=== PATIENT | male | born 2000 | race Caucasian/White ===

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

== ENCOUNTER 2023-01-08 13:59 | Emergency (ER) | payer OTHER, SELFPAY ==
[2023-01-08] VITALS (7 sets, daily range): BP systolic 109–138; BP diastolic 51–79; PULSE 80–104; RESP 13–21; TEMP 36.3; O2SAT 97–100; BMI 32.6
--- NOTE | 2023-01-08 14:12 | RAD_ITS ---
HISTORY: pain. TECHNIQUE: XR Ankle Min 3 Views. COMPARISON: None. FINDINGS: BONES : Fracture of the medial malleolus with lateral displacement. Oblique or spiral fracture of the distal fibula with mild posterior displacement. Nondisplaced fracture of the posterior malleolus. JOINTS: Widening of the ankle mortise medially. Joint effusion. SOFT TISSUES: Severe soft tissue swelling. RAD/Ankle min 3 Views IMPRESSION: Trimalleolar fracture-subluxation of the left ankle. Electronically Signed: Wilma Renteria MD at 15:06 EDT ,
[2023-01-08] MEDS: Ibuprofen 600 MG Tablet PO (14:20)
--- NOTE | 2023-01-08 14:21 | EX.ED.DYSGE1 ---
HPI <BE Chavez - Last Filed: 01/08/23 17:56> History of Present Illness Chief Complaint: Lower Extremity Injury Narrative Narrative: 22-year-old male tripped on the stairs yesterday and rolled his left ankle. He is having a lot of pain and swelling and is hobbling around. No weakness numbness or tingling. PFSH <BE Chavez - Last Filed: 01/08/23 17:56> [facility] Medical History (Updated 01/08/23 @ 16:08 by BE Chavez) Anxiety Depression Home Medications magnesium 200 mg tablet 200 mg PO DAILY 09/30/17 [History Last Taken Unknown] potassium gluconate 500 mg (83 mg) tablet 595 mg PO DAILY 09/30/17 [History Last Taken Unknown] Allergy/AdvReac Type Severity Reaction Status Date / Time amoxicillin Allergy Rash Verified 01/08/23 14:01 Social History (System 04/20/21 @ 14:56 by Leo Martinez) Smoking Status: Never smoker ROS <BE Chavez - Last Filed: 01/08/23 17:56> ROS ED ROS Narrative Constitutional: Negative for fever, chills, malaise. Neuro: Negative for motor/sensory dysfunction. Skin: Positive for abrasions. Musc: Positive for left ankle pain, swelling, trauma. EXAM <BE Chavez - Last Filed: 01/08/23 17:56> Physical Exam Narrative Exam Narrative: CONST: Patient sitting in no acute distress. EYES: Normal inspection. NECK: Normal inspection. RESP: No respiratory distress, CTAB. CVS: Regular rate and rhythm, no murmur, no gallop. SKIN: 2 small abrasions left medial ankle. EXTREMITIES: Significant left ankle soft tissue swelling with mild deformity, tenderness over the medial and lateral malleolus. No foot tenderness. Achilles intact, normal sensation, 2+ DP pulse. NEURO: Oriented x4. PSYCH: Normal affect. Const Vital Signs: 01/08/23 13:59 01/08/23 16:15 01/08/23 16:17 Temperature 97.4 F L Temperature Source Temporal Pulse Rate 104 H 93 Pulse Rate [1 (Initial Baseline)] 97 Pulse Rate [2] 82 Pulse Rate [3] 80 Pulse Rate [4] 84 Pulse Rate [5] 80 Pulse Rate [6] 82 Pulse Rate [7] 90 Pulse Rate [8] 86 Respiratory Rate 18 21 H Respiratory Rate [1 (Initial Baseline)] 13 Respiratory Rate [2] 16 Respiratory Rate [3] 18 Respiratory Rate [4] 16 Respiratory Rate [5] 16 Respiratory Rate [6] 16 Respiratory Rate [7] 16 Respiratory Rate [8] 16 Blood Pressure 132/65 H 138/79 H Blood Pressure [1 (Initial Baseline)] 128/69 H Blood Pressure [2] 130/73 H Blood Pressure [3] 109/61 Blood Pressure [6] 120/65 Blood Pressure [7] 109/51 L Blood Pressure [8] 119/68 Blood Pressure Mean 87 Pulse Ox 98 100 Oxygen Delivery Method Room Air Nasal Cannula Oxygen Delivery Method [1 (Initial Baseline)] Nasal Cannula Oxygen Delivery Method [2] Nasal Cannula Oxygen Delivery Method [3] Nasal Cannula Oxygen Delivery Method [4] Nasal Cannula Oxygen Delivery Method [5] Nasal Cannula Oxygen Delivery Method [6] Nasal Cannula Oxygen Delivery Method [7] Nasal Cannula Oxygen Delivery Method [8] Room Air Oxygen Flow Rate (L/min) 2 Oxygen Flow Rate (L/min) [1 (Initial Baseline)] 6 Oxygen Flow Rate (L/min) [2] 6 Oxygen Flow Rate (L/min) [3] 6 Oxygen Flow Rate (L/min) [4] 6 Oxygen Flow Rate (L/min) [5] 6 Oxygen Flow Rate (L/min) [6] 6 Oxygen Flow Rate (L/min) [7] 2 01/08/23 16:53 01/08/23 16:57 01/08/23 17:02 Temperature Temperature Source Pulse Rate Pulse Rate [1 (Initial Baseline)] Pulse Rate [2] Pulse Rate [3] Pulse Rate [4] Pulse Rate [5] Pulse Rate [6] Pulse Rate [7] Pulse Rate [8] Respiratory Rate Respiratory Rate [1 (Initial Baseline)] Respiratory Rate [2] Respiratory Rate [3] Respiratory Rate [4] Respiratory Rate [5] Respiratory Rate [6] Respiratory Rate [7] Respiratory Rate [8] Blood Pressure Blood Pressure [1 (Initial Baseline)] Blood Pressure [2] Blood Pressure [3] Blood Pressure [6] Blood Pressure [7] Blood Pressure [8] Blood Pressure Mean Pulse Ox Oxygen Delivery Method Room Air Room Air Room Air Oxygen Delivery Method [1 (Initial Baseline)] Oxygen Delivery Method [2] Oxygen Delivery Method [3] Oxygen Delivery Method [4] Oxygen Delivery Method [5] Oxygen Delivery Method [6] Oxygen Delivery Method [7] Oxygen Delivery Method [8] Oxygen Flow Rate (L/min) Oxygen Flow Rate (L/min) [1 (Initial Baseline)] Oxygen Flow Rate (L/min) [2] Oxygen Flow Rate (L/min) [3] Oxygen Flow Rate (L/min) [4] Oxygen Flow Rate (L/min) [5] Oxygen Flow Rate (L/min) [6] Oxygen Flow Rate (L/min) [7] 01/08/23 17:30 Temperature Temperature Source Pulse Rate Pulse Rate [1 (Initial Baseline)] Pulse Rate [2] Pulse Rate [3] Pulse Rate [4] Pulse Rate [5] Pulse Rate [6] Pulse Rate [7] Pulse Rate [8] Respiratory Rate 16 Respiratory Rate [1 (Initial Baseline)] Respiratory Rate [2] Respiratory Rate [3] Respiratory Rate [4] Respiratory Rate [5] Respiratory Rate [6] Respiratory Rate [7] Respiratory Rate [8] Blood Pressure Blood Pressure [1 (Initial Baseline)] Blood Pressure [2] Blood Pressure [3] Blood Pressure [6] Blood Pressure [7] Blood Pressure [8] Blood Pressure Mean Pulse Ox Oxygen Delivery Method Oxygen Delivery Method [1 (Initial Baseline)] Oxygen Delivery Method [2] Oxygen Delivery Method [3] Oxygen Delivery Method [4] Oxygen Delivery Method [5] Oxygen Delivery Method [6] Oxygen Delivery Method [7] Oxygen Delivery Method [8] Oxygen Flow Rate (L/min) Oxygen Flow Rate (L/min) [1 (Initial Baseline)] Oxygen Flow Rate (L/min) [2] Oxygen Flow Rate (L/min) [3] Oxygen Flow Rate (L/min) [4] Oxygen Flow Rate (L/min) [5] Oxygen Flow Rate (L/min) [6] Oxygen Flow Rate (L/min) [7] <Dr. Mike Mccarthy, DO - Last Filed: 01/09/23 23:17> Physical Exam Const Vital Signs: 01/08/23 13:59 01/08/23 16:15 01/08/23 16:17 Temperature 97.4 F L Temperature Source Temporal Pulse Rate 104 H 93 Pulse Rate [1 (Initial Baseline)] 97 Pulse Rate [2] 82 Pulse Rate [3] 80 Pulse Rate [4] 84 Pulse Rate [5] 80 Pulse Rate [6] 82 Pulse Rate [7] 90 Pulse Rate [8] 86 Respiratory Rate 18 21 H Respiratory Rate [1 (Initial Baseline)] 13 Respiratory Rate [2] 16 Respiratory Rate [3] 18 Respiratory Rate [4] 16 Respiratory Rate [5] 16 Respiratory Rate [6] 16 Respiratory Rate [7] 16 Respiratory Rate [8] 16 Blood Pressure 132/65 H 138/79 H Blood Pressure [1 (Initial Baseline)] 128/69 H Blood Pressure [2] 130/73 H Blood Pressure [3] 109/61 Blood Pressure [6] 120/65 Blood Pressure [7] 109/51 L Blood Pressure [8] 119/68 Blood Pressure Mean 87 Pulse Ox 98 100 Oxygen Delivery Method Room Air Nasal Cannula Oxygen Delivery Method [1 (Initial Baseline)] Nasal Cannula Oxygen Delivery Method [2] Nasal Cannula Oxygen Delivery Method [3] Nasal Cannula Oxygen Delivery Method [4] Nasal Cannula Oxygen Delivery Method [5] Nasal Cannula Oxygen Delivery Method [6] Nasal Cannula Oxygen Delivery Method [7] Nasal Cannula Oxygen Delivery Method [8] Room Air Oxygen Flow Rate (L/min) 2 Oxygen Flow Rate (L/min) [1 (Initial Baseline)] 6 Oxygen Flow Rate (L/min) [2] 6 Oxygen Flow Rate (L/min) [3] 6 Oxygen Flow Rate (L/min) [4] 6 Oxygen Flow Rate (L/min) [5] 6 Oxygen Flow Rate (L/min) [6] 6 Oxygen Flow Rate (L/min) [7] 2 01/08/23 16:53 01/08/23 16:57 01/08/23 17:02 Temperature Temperature Source Pulse Rate Pulse Rate [1 (Initial Baseline)] Pulse Rate [2] Pulse Rate [3] Pulse Rate [4] Pulse Rate [5] Pulse Rate [6] Pulse Rate [7] Pulse Rate [8] Respiratory Rate Respiratory Rate [1 (Initial Baseline)] Respiratory Rate [2] Respiratory Rate [3] Respiratory Rate [4] Respiratory Rate [5] Respiratory Rate [6] Respiratory Rate [7] Respiratory Rate [8] Blood Pressure Blood Pressure [1 (Initial Baseline)] Blood Pressure [2] Blood Pressure [3] Blood Pressure [6] Blood Pressure [7] Blood Pressure [8] Blood Pressure Mean Pulse Ox Oxygen Delivery Method Room Air Room Air Room Air Oxygen Delivery Method [1 (Initial Baseline)] Oxygen Delivery Method [2] Oxygen Delivery Method [3] Oxygen Delivery Method [4] Oxygen Delivery Method [5] Oxygen Delivery Method [6] Oxygen Delivery Method [7] Oxygen Delivery Method [8] Oxygen Flow Rate (L/min) Oxygen Flow Rate (L/min) [1 (Initial Baseline)] Oxygen Flow Rate (L/min) [2] Oxygen Flow Rate (L/min) [3] Oxygen Flow Rate (L/min) [4] Oxygen Flow Rate (L/min) [5] Oxygen Flow Rate (L/min) [6] Oxygen Flow Rate (L/min) [7] 01/08/23 17:30 Temperature Temperature Source Pulse Rate Pulse Rate [1 (Initial Baseline)] Pulse Rate [2] Pulse Rate [3] Pulse Rate [4] Pulse Rate [5] Pulse Rate [6] Pulse Rate [7] Pulse Rate [8] Respiratory Rate 16 Respiratory Rate [1 (Initial Baseline)] Respiratory Rate [2] Respiratory Rate [3] Respiratory Rate [4] Respiratory Rate [5] Respiratory Rate [6] Respiratory Rate [7] Respiratory Rate [8] Blood Pressure Blood Pressure [1 (Initial Baseline)] Blood Pressure [2] Blood Pressure [3] Blood Pressure [6] Blood Pressure [7] Blood Pressure [8] Blood Pressure Mean Pulse Ox Oxygen Delivery Method Oxygen Delivery Method [1 (Initial Baseline)] Oxygen Delivery Method [2] Oxygen Delivery Method [3] Oxygen Delivery Method [4] Oxygen Delivery Method [5] Oxygen Delivery Method [6] Oxygen Delivery Method [7] Oxygen Delivery Method [8] Oxygen Flow Rate (L/min) Oxygen Flow Rate (L/min) [1 (Initial Baseline)] Oxygen Flow Rate (L/min) [2] Oxygen Flow Rate (L/min) [3] Oxygen Flow Rate (L/min) [4] Oxygen Flow Rate (L/min) [5] Oxygen Flow Rate (L/min) [6] Oxygen Flow Rate (L/min) [7] [facility] <BE Chavez - Last Filed: 01/08/23 17:56> [facility] Narrative Medical decision making narrative: History gathered from: Mom and patient Patient fell down steps and twisted his left ankle and has significant soft tissue swelling over the ankle and is tender over by malleoli. Distal pulses and sensation is intact. X-ray shows trimalleolar fracture with subluxation. I spoke with Dr. Hightower who recommended posterior stirrup splint and post splint CT for surgical planning. Conscious sedation was performed and patient placed in splint. Post splint NBI. CT obtained for planning and patient given orthopedic referral. Advised ice, elevate, take OTC pain relievers and use crutches and be nonweightbearing. He was agreeable with this plan and discharged in stable condition. Differential: Ankle sprain versus fracture Consults: Orthopedics Radiography Diagnostic Testing: Clinical Impression(s) from Imaging Studies Ankle X-Ray 01/08/23 14:12 IMPRESSION: Trimalleolar fracture-subluxation of the left ankle. Electronically Signed: Wilma Renteria MD at 15:06 EDT , Lower Extremity CT 01/08/23 16:39 IMPRESSION: Soft tissue swelling around the ankle. Distal displaced fibular fracture is comminuted. Fracture of the posterior malleolus. Horizontal fracture through the medial malleolus. Electronically Signed: Abrahan Solares MD at 17:38 EDT , ED attending interpretation of left ankle x-ray shows acute trimalleolar fracture. <Dr. Mike Mccarthy, DO - Last Filed: 01/09/23 23:17> [facility] MDM Narrative Medical decision making narrative: History gathered from: Mom and patient Patient fell down steps and twisted his left ankle and has significant soft tissue swelling over the ankle and is tender over by malleoli. Distal pulses and sensation is intact. X-ray shows trimalleolar fracture with subluxation. I spoke with Dr. Hightower who recommended posterior stirrup splint and post splint CT for surgical planning. Conscious sedation was performed and patient placed in splint. Post splint NBI. CT obtained for planning and patient given orthopedic referral. Advised ice, elevate, take OTC pain relievers and use crutches and be nonweightbearing. He was agreeable with this plan and discharged in stable condition. Differential: Ankle sprain versus fracture Consults: Orthopedics This patient was seen with a PA/RADIOLOGY PHYSICIAN ASSISTANT Individually assessed they patient including history and physical. I have reviewed everything on the chart that is available and agree with the documentation provided by the PA/RADIOLOGY PHYSICIAN ASSISTANT including discussion about the assessment, treatment plan, discussion, and return precautions. Patient with trimalleolar fracture on x-ray on my interpretation. Radiology interprets this and agrees. Patient consented for procedural sedation with propofol. Patient was placed in a posterior splint with a stirrup which is well-padded and Bowie fracture by myself and the PA. Total sedation time 20 minutes. Patient tolerated well. Neurovascular intact after placement. Discussed with orthopedics who will see him in follow-up. Pain medication was given. Requested CT be performed for surgical planning and this was performed and shows fractures as noted above. Radiography Diagnostic Testing: Clinical Impression(s) from Imaging Studies Ankle X-Ray 01/08/23 14:12 IMPRESSION: Trimalleolar fracture-subluxation of the left ankle. Electronically Signed: Wilma Renteria MD at 15:06 EDT , Lower Extremity CT 01/08/23 16:39 IMPRESSION: Soft tissue swelling around the ankle. Distal displaced fibular fracture is comminuted. Fracture of the posterior malleolus. Horizontal fracture through the medial malleolus. Electronically Signed: Abrahan Solares MD at 17:38 EDT , <Dr. Mike Mccarthy, DO - Last Filed: 01/09/23 23:17> Procedural Sedation 1 (Initial Baseline): Consent Signed: Yes Any Problems With Anesthesia: No You/Your family experience fever (hyperthermia) w/anesthesia: No Sedation medication: Propofol Dose: 180 Total Moderate Sedation Units: 20 Maliampati Score: Class II ASA Classification: I Discharge Plan Triage Chief Complaint: Lower Extremity Injury ED Midlevel Provider: Nevin Krause ED Provider: Mike Mccarthy Dx/Rx/DC Orders Clinical Impression: Closed left trimalleolar fracture Instructions: ED Ankle Fracture Prescriptions: No Action magnesium 200 MG tablet 200 mg PO DAILY potassium gluconate 500 MG tablet 595 mg PO DAILY Primary Care Provider: Chad Vick Referrals: Abdiel Vargas DO [Med Staff - Active Staff] - Chad Vick MD [Primary Care Provider] - Activity Restrictions/Additional Instructions: As much as you can elevate your leg and put ice over the splint to decrease the swelling. Keep the splint clean and dry. Follow-up in the orthopedic office this week. Disposition Disposition: Home, Self Care Discharge Date/Time: 01/08/23 17:30
[2023-01-08] MEDS: Morphine 4 MG/ML Syringe IV (16:10)
[2023-01-08] MEDS: Propofol 200 MG/20 ML Vial IV BOLUS (16:11)
--- NOTE | 2023-01-08 16:39 | CT_ITS ---
EXAM: CT LEFT LOWER EXTREMITY WITHOUT INTRAVENOUS CONTRAST, ANKLE CLINICAL INDICATION: ankle pain TECHNIQUE: Helically acquired images were obtained of the left ankle without intravenous contrast. 2-D reformats were performed by the technologist. This CT exam was performed using one or more of the following dose reduction techniques: automated exposure control, adjustment of the mA and/or kV according to patient size, and/or use of iterative reconstruction technique. RADIATION DOSE: CTDIvol = 15.35 mGy, DLP = 484.25 mGy-cm COMPARISON: No relevant prior studies available. FINDINGS: BONES/JOINTS: There is an enthesophyte involving the posterior superior calcaneus at the site of insertion of the Achilles tendon. There is a calcaneal spur. No acute fracture. No ankle dislocation. SOFT TISSUES: Soft tissue swelling around the ankle. Distal displaced fibular fracture is comminuted. Fracture of the posterior malleolus. Horizontal fracture through the medial malleolus. OTHER FINDINGS: Splint in place. CT/Extremity Lower without Contra IMPRESSION: Soft tissue swelling around the ankle. Distal displaced fibular fracture is comminuted. Fracture of the posterior malleolus. Horizontal fracture through the medial malleolus. Electronically Signed: Abrahan Solares MD at 17:38 EDT ,
== END 2023-01-08 17:30 | disposition home or self-care (01) ==
PROVIDERS: Emergency Provider Student in an Organized Health Care Education/Training Program; PCP Family Medicine; Visit Provider Student in an Organized Health Care Education/Training Program
DX: S82.852A Displaced trimalleolar fracture of left lower leg, initial encounter for closed fracture (principal); X58.XXXA Exposure to other specified factors, initial encounter
CPT/HCPCS: 29515; 73610; 73700; 96374; 99152; 99285

== ENCOUNTER 2023-01-12 10:45 | Day surgery (SDC) | payer OTHER, SELFPAY ==
[2023-01-12] VITALS (7 sets, daily range): BP systolic 125–147; BP diastolic 70–87; PULSE 99–128; RESP 15–17; TEMP 36.8–37.6; O2SAT 93–127; BMI 31.1
--- NOTE | 2023-01-12 11:40 | RAD_ITS ---
INDICATION: FX EXAMINATION/TECHNIQUE: X-RAY - LEFT XR Ankle 2 Views 5 VIEWS COMPARISON: 01/08/2023 RAD/Ankle 2 Views IMPRESSION: 4 intraoperative fluoroscopic images of trimalleolar fracture ORIF. Electronically Signed: Chad Tate MD at 18:42 EDT ,
[2023-01-12] MEDS: Lactated Ringers 1,000 ML 15 ML IV (11:47)
[2023-01-12] MEDS: Cefazolin 2 GM in 0.9% Normal Saline 100 ML IV (12:19)
[2023-01-12] MEDS: Bupivacaine 0.25% 30 ML Vial (15:02)
--- NOTE | 2023-01-12 15:45 | DCINST_ITS ---
Discharge Instructions Follow Up Care Test Results: Test results from this visit will be discussed in further detail at your follow- up appointment, if applicable. Discharge Plan Admission Primary Reason for Your Visit: Left ankle surgery Attending Provider: Nathan Hightower Primary Care Provider: Chad Vick Instructions Additional Instructions / Restrictions: Follow preprinted instructions from your surgeons office. Discharge Orders/Prescriptions Prescriptions: No Action magnesium 200 MG tablet 200 mg PO DAILY potassium gluconate 500 MG tablet 595 mg PO DAILY acetazolamide 250 mg tablet Patient Comments: take 1 tablet by mouth twice a day paroxetine HCl 20 mg tablet PO Patient Comments: take 1 tablet by mouth once daily Referrals / Follow Up: Nathan Hightower DO [Med Staff - Active Staff] - Chad Vick MD [Primary Care Provider] - Disposition Disposition (needs filled in before D/C Order can be placed): Home, Self Care
[2023-01-12] MEDS: Oxycodone/Apap 5/325 Tablet PO (16:33)
--- NOTE | 2023-01-12 17:02 | OP.PCM_ITS ---
Report of Operation Date of Procedure: 01/12/23 Description of Surgical Findings:: Preoperative diagnosis: Left ankle trimalleolar fracture Postoperative diagnosis: Left ankle trimalleolar fracture Procedure: Open reduction internal fixation left ankle trimalleolar fracture Surgeon: Nathan Hightower DO Shoemaking Finisher: Whitley Sims PA-C Anesthesia: General endotracheal Bog Cutter: Saqib Vega CRNA Complications: None apparent Drains: None Estimated blood loss: 50 cc Urinary output: None recorded IV fluids: 1 L crystalloid Specimens: None Surgical implants: Arthrex 2.4 mm 6-hole straight plate x2, one third tubular titanium 10 hole plate, 4.0 mm partially-threaded cancellous screw, 3.0 mm partially-threaded cancellous screw Surgical indications: This is a 22-year-old male who sustained a twisting injury to his left ankle approximately 5 days ago. He was seen in the [facility] emergency department where x-rays revealed a trimalleolar fracture with minimal subluxation. A well molded splint was applied by emergency room physician. CT scan was obtained at that time. CT scan demonstrated a hyper plantarflexion variant trimalleolar fracture involving the posterior malleolus with separate posterior lateral and posterior medial fragments with a displaced articular fragment. Patient followed up in our office earlier this week. I saw the patient in the office and recommended surgical invention form of open reduction internal fixation of the left ankle. I reviewed the risks, benefits, terms of procedure. The risks include but are not limited to bleeding, infection, loss of life or limb, risk of anesthesia, risk of nerve block, persistent pain, nonunion, malunion, posttraumatic arthritis, instability, need for additional surgery, failure of orthopedic hardware, persistent limp or need for assistive device. Patient expressed understanding of these risks and wished to proceed. Description of procedure: Patient was seen in preoperative holding area. They were identified by name, medical record number, date of . The operative extremity was marked with a surgical marker. We confirmed informed consent with the patient and all questions were answered to her satisfaction. At time of the procedure, patient was brought to the operative suite and positioned supine on a standard operating table. All bony prominences were well-padded. General anesthesia was administered. After adequate anesthesia, a well-padded pneumatic tourniquet was applied to the left upper thigh. A large bump was placed in the patient's left hip. The left lower extremity was elevated on bath blankets for fluoroscopic imaging and access to the limb during surgery. We secured this with tape as well as the nonoperative extremity. We then performed a timeout with all parties in attendance and agree with the side, site, operation to be performed. No concerns were voiced and elected to proceed. 2 g Ancef Ancef was administered prior to incision by the anesthesia staff. We then prepped and draped the operative extremity using a ChloraPrep. While stabilizing the ankle, the operative extremity was exsanguinated with an Esmarch bandage. Tourniquet was inflated to 250 mmHg, which remained up for 2 hours. Given the fracture pattern of the posterior malleolus I performed a posterior medial approach to the distal tibia. Limb was placed in a [id number] position. Skin incision was made sharply between the posterior border of the medial malleolus and the Achilles tendon extending along the distal tibia and curving towards the foot. Full-thickness skin flaps were developed down the level of the fascia. Crossing vessels were cauterized. Fascia was opened over the flexor houses longus tendon. I developed the plane between the posterior tibialis tendon and the flexor hallucis longus. I then opened the periosteum overlying the posterior medial fragment. Fracture was encountered. I used a dental pick to open the fracture site. A small osteochondral fragment was removed. The articular fragment of concern was visualized and repositioned to an anatomic location. I then reduced the posterior medial fragment to stabilize the intercalary fragment. This was held in place with a K wire after a large pointed reduction clamp was applied. I then visualized the posterior lateral fragment which was well reduced with a dorsiflexion maneuver and direct pressure over the fragment this was also held in place with a K wire. I then selected 2 separate 2.4 mm 6-hole straight plate stacked in buttress fashion. These were under contoured and apical screws were placed at the fracture compressing the plate to bone and achieving excellent compression across fracture sites. Additional cortical screws were placed. I then turned my attention to the medial malleolar fragment through the same incision. Skin flap was elevated to the medial malleolus. Fracture fragment noted. Consistent with a anterior colliculus fracture. I was able to achieve anatomic reduction with a pointed reduction clamp. 2 parallel K wires were placed through the tip of the medial malleolus. Anteriorly, a 4.0 mm partially- threaded cancellous screw was drilled for and placed with excellent compression. Given the small anterior colliculus pattern, a 3.0 mm partially-threaded cancellous screw was selected for the posterior screw and was placed in similar fashion with excellent purchase. I then turned my attention to the lateral malleolus. Limb was repositioned and internally rotated. Direct lateral approach was performed through skin and subcutaneous tissue about the lateral malleolus. Fracture site was encountered after periosteum was gently elevated. I debrided fracture hematoma and achieved an anatomic reduction of the lateral malleolus. I placed a one third tubular plate in antiglide fashion placing the apical screw with excellent compression across the fracture site. Additional cortical screws were placed proximal and 2 cancellous screws distally. I then brought in fluoroscopy to obtain final fluoroscopic images. An external rotation stress test was applied and the syndesmosis appeared stable. I then deflated the tourniquet. Hemostasis was excellent. Field blocks were administered with 20 cc total of 0.25% plain bupivacaine. I copiously irrigated the wounds with normal saline solution. Dermis of both incisions was closed with interrupted buried 2-0 Vicryl suture and skin reapproximated nolberto. Sterile compression dressing was applied. A well-padded 3 sided fiberglass short leg splint was applied in maximal dorsiflexion. Patient tolerated procedure well without apparent complication. He was transferred to PACU in stable condition after being safely extubated in the operative suite. A postoperative sciatic nerve block was administered by the anesthesia staff. Need for skilled speech language pathology assistant: Whitley Sims PA-C was critical to the outcome of the case. During the course of the procedure the physician speech language pathology assistant played a vital role. Her intimate knowledge of my steps in the procedure aided in safe and expedient completion of the procedure. The PA played a vital role in positioning particularly in obtaining the appropriate positioning. The PA was also vital in the retraction of soft tissues during the exposure and protecting vital structures. The PA was also vital and obtaining fracture reduction and assisting with hardware placement. She also played a vital role in closure and splint application with my direct supervision. Post Operative Plan: Weightbearing: Nonweightbearing operative extremity Antibiotics: 2 g Ancef x 1 dose preoperatively DVT Prophylaxis: Aspirin 81 mg twice daily starting postoperative day #1 Singer: None Dressing: Maintain splint, keep it clean dry and intact until follow-up X-Rays: 2 weeks postop in the office in splint Pain medication: Narcotic pain prescription provided in the office, Tylenol/ibuprofen encouraged Follow-up: 2 weeks post-operatively with me in the office
== END 2023-01-12 17:11 | disposition home or self-care (01) ==
LOC: SDC 10:50 → AC 10:54
PROVIDERS: PCP Family Medicine; Referring Provider Student in an Organized Health Care Education/Training Program; Visit Provider Student in an Organized Health Care Education/Training Program
PROC: (CPT 27822; principal; 2023-01-12 12:20)
DX: S82.852A Displaced trimalleolar fracture of left lower leg, initial encounter for closed fracture (principal); E66.8 Other obesity; F41.9 Anxiety disorder, unspecified; F32.A Depression, unspecified; Z79.899 Other long term (current) drug therapy; Z68.31 Body mass index [BMI] 31.0-31.9, adult; W10.9XXA Fall (on) (from) unspecified stairs and steps, initial encounter
CPT/HCPCS: 27822; 64445; 01480; 73600; 76000; C1713; J7120; J2405

== ENCOUNTER → 2025-06-20 | Outpatient (CLI) | payer OTHER, SELFPAY ==
--- OUTSIDE RECORDS SUMMARY | 2025-06-20 12:34 | XMS RPT_ITS | CCD ---
Author Organization [facility] ion Partnership [facility] Care Team Providers Care Receiving Worker Name Role Phone IGNACIO, REMI Myah Unavailable Unavailable MATA, CHAD Pretty Unavailable Unavailable NAVDEEP, GENIE Unavailable Unavailable SANDS, PIOTR Unavailable Unavailable ALEKS, PARISH Robledo Unavailable Unavailable MATA, CHAD Pretty Unavailable Unavailable MATA, CHAD Pretty Unavailable Unavailable Mata, Chad Primary Care Unavailable Nathan Hightower Attending Unavailable Nathan Hightower Referring Unavailable Mike Mccarthy Attending Unavailable Chad Mata Primary Care Unavailable GIOVANNI HATHAWAY Attending Unavailable CHAD MATA Consulting Unavailable MATACHAD LAWSON Referring Unavailable GIOVANNI HATHAWAY Admitting Unavailable GIOVANNI HATHAWAY Primary Care Unavailable PROVIDER, UNKNOWN Consulting Unavailable BLAYNE SLAUGHTER DO Admitting Unavailable BLAYNE SLAUGHTER DO Primary Care Unavailable BLAYNE SLAUGHTER DO Attending Unavailable CHAD MATA Consulting Unavailable MATACHAD Referring Unavailable PROVIDER, UNKNOWN Consulting Unavailable Allergies Allergy Classification Reported Allergen(s) Allergy Type Date of Onset Reaction(s) Facility (2 sources) Amoxicillin Drug Allergy 01-08-2023 Rash [facility] (1 source) Amoxicillin Drug Allergy 01-08-2023 [facility] Repository Medications Current Medications Medication Drug Class(es) Dates Sig (Normalized) Sig (Original) acetaZOLAMIDE 250 mg oral tablet (1 source) Carbonic Anhydrase Inhibitor Start: 01-12-2023 Acetazolamide Active MG January 12, 2023 12:00am Magnesium (2 sources) Start: 09-30-2017 take 200 mg by mouth once daily Magnesium Active 200 MG PO DAILY September 30, 2017 12:00am PARoxetine hydrochloride 20 mg oral tablet (1 source) Serotonin Reuptake Inhibitor Start: 01-12-2023 Paroxetine Hcl Active MG PO January 12, 2023 12:00am potassium gluconate 2.13 meq oral tablet (2 sources) Start: 09-30-2017 take 595 mg by mouth once daily Potassium Gluconate Active 595 MG PO DAILY September 30, 2017 12:00am Problems Active Problems Problem Classification Problem Date Documented Da te Episodic/Chronic Fracture of lower limb (3 sources) Closed trimalleolar fracture; Translations: [Displaced trimalleolar fracture of left lower leg, initial encounter for closed fracture] Onset: 08-15-2023 01-08-2023 Episodic Past or Other Problems Problem Classification Problem Date Documented Da te Episodic/Chronic Other non-traumatic joint disorders (1 source) Pain in left ankle and joints of left foot; Translations: [Pain in left ankle and joints of left foot] Onset: 01-12-2023 Episodic Results Test Name Value Interpretation Reference Range Facility ED MED ADMINISTRATION DETAIL on 09-14-2024 ED MED ADMINISTRATION DETAIL [facility] Medication Administration Record [address] [address] [id number] 09/11/2024 Patient: MESSI PASTOR Sex: Male : 2000 Age: 24y MEASUREMENTS: Wt: 79.4 kg, Ht/Mynor: 72.0 in, BMI: 23.73 ALLERGIES: Penicillins Medication Ordered Medication Administration Date/Time 1 of 1 [facility] [place] ED NURSES CLINICAL NOTEon ED NURSES CLINICAL NOTE Nurse Narrative Nurse Clinical Narrative [address] [address] [id number] 09/11/2024 Patient: MESSI PASTOR Sex: Male : 2000 Age: 24y Primary Insurance: [facility] Policy Number: [id number] Group Number: [id number] Subscriber: Other Disposition: Discharge to Home Disposition Decision Time: 21:50 09/11/2024 Departure Time: 22:15 09/11/2024 TRIAGE Arrived by private vehicle. Historian: (patient). Triage time: 19:08 09/11/2024. Acuity: LEVEL 4. Chief Complaint: NASAL CONGESTION and SORE THROAT. Onset. (5 days PSYCHOMETRIST). The patient has had fever, weakness, a cough and difficulty breathing. Reports muscle aches. SEPSIS SCREEN: NEGATIVE. SIRS criteria negative. No possible sources of infection. -- 19:20 09/11/24 EST Lesli Hernández R.N. 19:14 09/11/24. BP: 144/93 MAP: 110. HR: 91. RR: 16. O2 saturation: 97% Temperature: 98.9 F. Pain level now 09/23. -- 19:19 09/11/24 OKSANA Hernández R.N. Measurements: 19:09/11/24 Wt: 79.4 kg, Ht/Mynor: 72.0 in, BMI: 23.73 -- 19:19 09/11/24 EST Lesli Hernández R.N. Medications: 1 of 3 Nurse Narrative acetaZOLAMIDE 125 mg tablet -- 19:21 09/11/24 OKSANA Hernández R.N.wrong dose -- 19:34 09/11/24 EST Lesli Hernández R.N. acetazolamide 250 mg tablet: 1 tablet once a day . -- 19:34 09/11/24 OKSANA Hernández R.N. 19:08 09/11/24. Preferred Pharmacy: [place], [place] -- 19:20 09/11/24 OKSANA Hernández R.N. Allergies: Penicillins -- 19:12 09/11/24 OKSANA Hernández R.N. Problems: hyperkalemic periodic paralysis -- 19:13 09/11/24 OKSANA Hernández R.N. ADDITIONAL SURGERIES: left ankle surgery -- 19:22 09/11/24 OKSANA Hernández R.N. History 19:08 09/11/24. SOCIAL HX: Never smoker. Alcohol use; consumes liquor weekly. Drug use: marijuana. The patient has not traveled outside the [place] Infectious disease exposure: No infectious disease exposure. ABUSE ASSESSMENT: The patient answered yes to the question(s) Do you feel safe in your home? and no to the question(s) Are you afraid to go home?. SELF HARM ASSESSMENT: Self harm assessment was performed. The patient answered no to the question(s) Have you recently felt down, depressed, or hopeless? and Do you have thoughts of harming or killing yourself?. FALL RISK ASSESSMENT: Fall risk assessment completed. No risk factors identified. -- 19:20 09/11/24 EST Lesli Hernández R.N. PHYSICAL ASSESSMENT 2 of 3 Nurse Narrative 19:34 09/11/24. Ambulatory to room. ( uri, cough, sore throat, thinks he has bronchitis.). GENERAL / NEURO / PSYCH: Alert. Oriented X 4. Appears in no acute distress. HEENT: Pupils equal, round and reactive to light. RESPIRATORY: Respirations not labored. -- 19:34 09/11/24 EST Oscar Hough R.N. NURSING PROGRESS NOTES 19:34 09/11/24. Two patient identifiers checked. Call light placed in reach. Side rails up x 1. Bed placed in lowest position. Brakes of bed on. -- 19:34 09/11/24 OKSANA Hough R.N. DISPOSITION / DISCHARGE 19:14 09/11/24. BP: 144/93 MAP: 110. HR: 91. RR: 16. O2 saturation: 97% Temperature: 98.9 F. Pain level now 09/23. -- 22:28 09/11/24 EST Oscar Hough R.N. Departure time: 22:15 09/11/2024. Condition at departure: improved and stable. No learning barriers present. Discharge instructions provided and reviewed with the patient. Treatments reviewed. Reviewed referrals. Patient verbalized understanding. Written instructions provided in Sierra Leonean. The patient was discharged home. The patient left ambulatory and via private vehicle. Patient driving. -- 22:28 09/11/24 OKSANA Hough R.N. (Electronically signed by Oscar Hough R.N. 09/11/24 22:28:36 EST) Generated by [facility] 3 of 3 [facility] [place] ED ORDER SHEET (CPOE ONLY)on 09-14-2024 ED ORDER SHEET (CPOE ONLY) Order Sheet Order Sheet [address] [place] [address] [id number] 09/11/2024 Patient: MESSI PASTOR Sex: Male : 2000 Age: 24y MEASUREMENTS: Wt: 79.4 kg, Ht/Mynor: 72.0 in, BMI: 23.73 ALLERGIES: Penicillins MEDICATION/IV/DRIP/FLUID ORDERS Order Description Priority Entered Acknowledged Completed LAB ORDERS Order Description Priority Entered Acknowledged Collected Completed Flu Swab (Influenzae Stat 20:29 09/11/2024 20:55 09/11/2024 21:22 09/11/2024 AAg) Stat Oscar Berry R.N. Seth Lapp, R.N. D.OAurelio Rapid Strep Screen Stat Stat 20:29 09/11/2024 20:55 09/11/2024 21:22 09/11/2024 Oscar Berry R.N. Seth Lapp, R.N. D.OAurelio Rapid COVID (SARS) Stat 20:29 09/11/2024 20:55 09/11/2024 21:22 09/11/2024 ANTIGEN TEST Stat Oscar Berry R.N. Seth Lapp, R.N. D.O. DIAGNOSTIC STUDY ORDERS 1 of 2 Order Sheet Order Description Priority Entered Acknowledged Completed Chest 2V Stat Stat 20:29 09/11/2024 20:55 20:55 Terry Danielson D.O. 09/11/2024 09/11/2024 Adam Taylor, R.N. Reason for Study: Cough STAFF ORDERS Order Description Priority Entered Acknowledged Collected Completed [Electronically signed by Terry Danielson D.O. (09/14/2024 01:29 EST)] 2 of 2 [facility] [place] ED PHYSICIAN CLINICAL REPORT on 09-14-2024 ED PHYSICIAN CLINICAL REPORT Narrative Physician Clinical Narrative [address] [address] [phone] 09/11/2024 Patient: MESSI PASTOR Sex: Male : 2000 Age: 24y Primary Insurance: [employer] [facility] Policy Number: [id number] Group Number: [id number] Subscriber: Other Disposition: Discharge to Home Disposition Decision Time: 21:50 09/11/2024 Departure Time: 22:15 09/11/2024 Measurements Wt: 79.4 kg, Ht/Mynor: 72.0 in, BMI: 23.73 Initial Vital Sign Measured Time BP MAP HR RR O2Sat ETCO2 Temp Pain GCS RTS 19:14 09/11/2024 144/93 110 91 16 97% 98.9 F 3 Time Seen: correction to prior entry - 19:42 09/11/2024. Arrived- By private vehicle. Historian- patient. PAST HISTORY hyperkalemic periodic paralysis Surgeries: left ankle surgery Medications: acetazolamide 250 mg tablet: 1 tablet once a day . Allergies: 1 of 7 Narrative Penicillins ADDITIONAL NOTES The nursing notes have been reviewed. PHYSICAL EXAM Vital Signs: Have been reviewed. LABS, X-RAYS, AND EKG Laboratory Tests: CORONAVIRUS (SARS) ANTIGEN TEST Final JOSÉ MIGUEL: 09/11/2024 21:00:00 EST MsgRcvd: 09/11/2024 21:39 EST Lab Test Result Reference Status Received Comments NORMAL: 09/11/2024 SARS ANTIGEN NEGATIVE Final NEGATIVE 21:39 EST INTERNAL 09/11/2024 PASS Final CONTROL 21:39 EST EXTERNAL QC 09/11/2024 YES Final DONE? 21:39 EST 2 of 7 Narrative Lab Test Result Reference Status Received Comments SARS-CoV-2 THIS TEST IS BEING USED UNDER THE FDA EUA PROCEDURE. THIS ASSAY HAS BEEN VALIDATED AT [facility] FOR USE WITH NASAL AND NASOPHARYNGEAL SWAB SPECIMENS. INTERPRETIVE DATA TEST RESULTS SHOULD ALWAYS BE CONSIDERED IN THE CONTEXT OF CLINICAL OBSERVATIONS AND EPIDEMIOLOGICAL DATA IN MAKING FINAL DIAGNOSIS AND PATIENT MANAGEMENT DECISIONS. PATIENT MANAGEMENT SHOULD FOLLOW CURRENT CDC 3 of 7 GUIDELINES. THE CLARITA SARS ANTIGEN LYLE DOES Narrative INFLUENZA VIRUS RAPID A/B Final JOSÉ MIGUEL: 09/11/2024 21:00:00 EST MsgRcvd: 09/11/2024 21:39 EST Lab Test Result Reference Status Received Comments NEGATIVE 09/11/2024 INFLUENZA A Final [NEGATIVE 21:39 EST NEGATIVE 09/11/2024 INFLUENZA B Final [NEGATIVE 21:39 EST INTERNAL 09/11/2024 PASS Final NEG QC 21:39 EST INTERNAL 09/11/2024 PASS Final POS QC 21:39 EST EXTERNAL QC 09/11/2024 YES Final DONE? 21:39 EST 4 of 7 Narrative Lab Test Result Reference Status Received Comments A NEGATIVE TEST RESULT DOES NOT EXCLUDE INFECTION WITH INFLUENZA A OR B. THEREFORE, THE RESULTS OBTAINED FROM THIS FLU TEST SHOULD BE USED IN CONJUCTION WITH CLINICAL FINDINGS TO MAKE AN ACCURATE DIAGNOSIS. A POSITIVE RESULT DOES NOT RULE OUT CO-INFECTIONS WITH OTHER PATHOGENS OR IDENTIFY ANY SPECIFIC INFLUENZA A VIRUS 09/11/2024 SEND TO IC? NO Final SUBTYPE.CO-INFECTION 21:39 EST WITH INFLUENZA A AND B IS RARE. IT IS RECOMMENDED THAT DUAL POSITIVE RESULTS BE CONFIRMED BY VIRAL CULTURE OR AN FDA-CLEARED INFLUENZA A AND B MOLECULAR ASSAY. INDIVIDUALS WHO HAVE 5 of 7 RECEIVED NASALLY ADMINISTERED INFLUENZA Narrative Lab Test Result Reference Status Received Comments RESULT 09/11/2024 NO Final CRITICAL? 21:39 EST RAPID STREP Final JOSÉ MIGUEL: 09/11/2024 21:00:00 EST MsgRcvd: 09/11/2024 21:38 EST Lab Test Result Reference Status Received Comments NEG:GRP A 09/11/2024 21:38 Rapid Strep CINDY - NEG Final STREP EST 09/11/2024 21:38 INTERNAL QC PASS Final EST EXTERNAL QC 09/11/2024 21:38 YES Final DONE? EST PROGRESS AND PROCEDURES PROCEDURES (Upper respirtory congestion). Course of Care: (Resting comforatbly in room no 7, wants to return to work tomorrow, ok). MEDICAL DECISION MAKING: (This patient presents to the ER for evaluation of cough, congestion, present for a couple days, is a deputy jailer at work, came in to be sure he could return to work, did not want to pass around an significant illnesses; He states this started 3 days ago, no fever, no n/v/d, no difficulty with eating, no urine issures, no meds on a regular basis, has been taking cold medications, no hx dm, heart, Non-smoker, no etoh, in good health; no hx asthma, no hx dm, chronic lung; PE: Pleasant, alert, seen in room no 7; provides his own hx, appears in no distress, on the smart phone; alert, heent nl, mild nasal congestion, pharynx symmetric, no necrosis, no stridor, tm nl, lungs cta, hrrr, no m, abd soft, not tender minimal overweight, ex non-swelling, symmetric neuro; 6 of 7 Narrative cxr and swabs neg, patient expressed real relief, and immediately asks to return to work. Ok by me.). Disposition: Disposition Decision (more content not included)... [facility] ED SUPER BILLon 09-14-2024 ED SUPER BILL [address] [address] [phone] 09/11/2024 Patient: MESSI PASTOR Sex: Male : 2000 Age: 24y Item Professional Category Description Facility Code Code Quantity Fee Total Nurse/E/M EMERGENCY 386080 1 $0.00 $0.00 DEPARTMENT VISIT LOW/MODER SEVERITY (84342-19) Grand Total $0.00 Providers Terry Danielson D.O. 1 of 1 [facility] ED VISIT SUMMARYon ED VISIT SUMMARY Visit Overview Visit Overview [address] [place] [address] [phone] 09/11/2024 Patient: MESSI PASTOR Sex: Male : 2000 Age: 24y 09/14/2024 01:29 AM EST ED Arrival:19:00 09/11/2024 EST Status: Recent Travel:no Language:eng Adv Directive: Isolation Status: Ethnicity:N Fall Risk:no risk Infectious Disease Exposure:no Measurements:6' / 182.9 Self-Harm Status:risk Sepsis Screen:negative cm 175.0 lb / 79.4 kg Chief Complaint:NASAL CONGESTION, SORE THROAT, and (5 days PSYCHOMETRIST) ALLERGIES Penicillins HOME MEDICATIONS acetazolamide 250 mg tablet: 1 tablet once a day . PAST MEDICAL HISTORY / PROBLEMS hyperkalemic periodic paralysis 1 of 3 Visit Overview PAST SURGICAL HISTORY left ankle surgery SOCIAL HISTORY Smoking status: No Alcohol use: Yes Drug use: Yes ED COURSE MEDICATIONS GIVEN IN EMERGENCY DEPARTMENT IV SITE INFORMATION INTAKE OUTPUT REASSESMENT (most recent) 19:34 09/11/24. Ambulatory to room. ( uri, cough, sore throat, thinks he has bronchitis.). GENERAL / NEURO / PSYCH: Alert. Oriented X 4. Appears in no acute distress. HEENT: Pupils equal, round and reactive to light. RESPIRATORY: Respirations not labored. VITAL SIGNS First Vitals Last Vitals Temp 19:14 09/11/24 98.9 F Temp 19:14 09/11/24 98.9 F BP 19:14 09/11/24 144/93 BP 19:14 09/11/24 144/93 HR 19:14 09/11/24 91 HR 19:14 09/11/24 91 RR 19:14 09/11/24 16 RR 19:14 09/11/24 16 O2 Sat 19:14 09/11/24 97% O2 Sat 19:14 09/11/24 97% Pain 19:14 09/11/24 3 Pain 19:14 09/11/24 3 ETCO2 19:14 09/11/24 ETCO2 19:14 09/11/24 GCS 19:14 09/11/24 GCS 19:14 09/11/24 RTS 19:14 09/11/24 RTS 19:14 09/11/24 PROCEDURES 2 of 3 Visit Overview NURSING INTERVENTIONS LABS / STUDIES LABS / STUDIES ORDERED Chest 2V Flu Swab (Influenzae AAg) Rapid COVID (SARS) ANTIGEN TEST Rapid Strep Screen LABS / STUDIES PENDING IMPORT CHEST 2 VIEWS CLINICAL IMPRESSION 3 of 3 [facility] [place] ED VITALS FLOW SHEETon 09-14 ED VITALS FLOW SHEET Vit[place] [address] [phone] 09/11/2024 Patient: MESSI PASTOR Sex: Male : 2000 Age: 24y Measurements Wt: 79.4 kg, Ht/Mynor: 72.0 in, BMI: 23.73 Measured Time BP MAP HR RR O2Sat ETCO2 Temp Pain GCS RTS 19:14 09/11/2024 144/93 110 91 16 97% 98.9 F 3 1 of 1 [facility] [place] GROUP A STREPTOCOCCUS BY PCR [CCL]on 09-13-2024 RESULT CRITICAL? NO [facility] [place] Comment on above: Performed By: #### 2 [id number] ####[place],[address] [place], [place] [id number] Group A Strep PCR Not detected Normal Not detected [facility] Comment on above: Result Comment: [facility] [address] [place] [address] Mingo Mcghee III, M.D. [id number] Performed By: #### 2 [id number] ####[place],[address] [place], [place] [id number] CHEST 2 VIEWSon 09-11-2024 CHEST 2 VIEWS [place] [address] Patient: MESSI PASTOR Phone#: : 2000 Age: 24 Gender: M Pt. Type: ER Account: [id number] Location: [facility] Ordering: DR. TERRY DANIELSON Exam Date: 09/11/2024/20:58 Family Phys: CHAD MATA Charge Code: 331234 Physician: Knox Order #: [id number] Dose#: PROCEDURE: X-RAY CHEST 2 VIEWS COMPARISON: None. INDICATIONS: Cough. FINDINGS: LUNGS: Normal. No significant pulmonary parenchymal abnormalities. VASCULATURE: Normal. Unremarkable pulmonary vasculature. CARDIAC: Normal. No cardiac silhouette abnormality or cardiomegaly. MEDIASTINUM: Normal. No visible mass or adenopathy. PLEURA: Normal. No effusion or pleural thickening. BONES: Normal. No fracture or visible bony lesion. OTHER: Negative. CONCLUSION: No acute disease. Dictated by: Lety Jones MD on 09/12/2024 at 9:41 Approved by: Lety Jones MD on 09/12/2024 at 9:42 [facility] [place] CORONAVIRUS (SARS) ANTIGEN T ESTon 09-11-2024 EXTERNAL QC DONE? YES [facility] [place] Comment on above: Performed By: #### 2 [id number] #### [place],[address] [place], [place] [address] INTERNAL CONTROL PASS [facility] [place] Comment on above: Performed By: #### 2 [id number] #### [place],[address] [place] [id number] SARS ANTIGEN Negative Normal NORMAL: NEGATIVE [place] Comment on above: Performed By: #### 2 [id number] #### [place],[address] [place], [place] [address] SEND TO IC? NO [facility] [place] Comment on above: Result Comment: SARS -CoV-2 THIS TEST IS BEING USED UNDER THE FDA EUA PROCEDURE. THIS ASSAY HAS BEEN VALIDATED AT [facility] FOR USE WITH NASAL AND NASOPHARYNGEAL SWAB SPECIMENS. INTERPRETIVE DATA TEST RESULTS SHOULD ALWAYS BE CONSIDERED IN THE CONTEXT OF CLINICAL OBSERVATIONS AND EPIDEMIOLOGICAL DATA IN MAKING FINAL DIAGNOSIS AND PATIENT MANAGEMENT DECISIONS. PATIENT MANAGEMENT SHOULD FOLLOW CURRENT CDC GUIDELINES. THE CLARITA SARS ANTIGEN LYLE DOES NOT DIFFERENTIATE BETWEEN SARS-CoV & SARS-CoV-2. A POSITIVE TEST RESULT INDICATES THE PRESENCE OF SARS-CoV-2 NUCLEOCAPSID PROTEIN ANTIGEN, AND THE PATIENT IS INFECTED WITH THE VIRUS AND PRESUMED TO BE CONTAGIOUS. A NEGATIVE TEST RESULT FOR THIS TEST MEANS THAT SARS-CoV-2 NUCLEOCAPSID PROTEIN ANTIGEN WAS NOT PRESENT IN THE SPECIMEN ABOVE THE LIMIT OF DETECTION. HOWEVER, A NEGATIVE RESULT DOES NOT RULE OUT COVID-19 AND SHOULD NOT BE USED THE SOLE BASIS FOR TREATMENT OR PATIENT MANAGEMENT DECISIONS. A NEGATIVE RESULT DOES NOT EXCLUDE THE POSSIBILITY OF COVID-19. NEGATIVE RESULTS, FROM PATIENTS WITH SYMPTOM ONSET BEYOND FIVE DAYS, SHOULD BE TREATED PRESUMPTIVE AND CONFIRMATION WITH A MOLECULAR ASSAY, IF NECESSARY, FOR PATIENT MANAGEMENT, MAY BE PERFORMED. WHEN DIAGNOSTIC TESTING IS NEGATIVE, THE POSSIBLILTY OF A FALSE NEGATIVE RESULT SHOULD BE CONSIDERED IN THE CONTEXT OF A PATIENT'S RECENT EXPOSURES AND THE PRESENCE OF CLINICAL SIGNS AND SYMPTOMS CONSISTENT WITH COVID-19. THE POSSIBILITY OF A FALSE NEGATIVE RESULT SHOULD ESPECIALLY BE CONSIDERED IF THE PATIENT'S RECENT EXPOSURES OR CLINICAL PRESENTATION INDICATE THAT COVID-19 IS LIKELY, AND DIAGNOSTIC TESTS FOR OTHER CAUSES OF ILLNESS (e.g., OTHER RESPIRATORY ILLNESS) ARE NEGATIVE. IF COVID-19 IS STILL SUSPECTED BASED ON EXPOSURE HISTORY TOGETHER WITH OTHER CLINICAL FINDINGS, RE-TESTING SHOULD BE CONSIDERED BY HEALTHCARE PROVIDERS IN CONSULTATION WITH PUBLIC HEALTH AUTHORITIES. Performed By: #### 2 [id number] #### [place],[address] [place], [place] [id number] INFLUENZA VIRUS RAPID A/Bon 09-11-2024 INFLUENZA VIRUS RAPID A/B INFLUENZA A NEGATIVE INFLUENZA B NEGATIVE INTERNAL NEG QC PASS INTERNAL POS QC PASS EXTERNAL QC DONE? YES SEND TO IC? NO A NEGATIVE TEST RESULT DOES NOT EXCLUDE INFECTION WITH INFLUENZA A OR B. THEREFORE, THE RESULTS OBTAINED FROM THIS FLU TEST SHOULD BE USED IN CONJUCTION WITH CLINICAL FINDINGS TO MAKE AN ACCURATE DIAGNOSIS. A POSITIVE RESULT DOES NOT RULE OUT CO-INFECTIONS WITH OTHER PATHOGENS OR IDENTIFY ANY SPECIFIC INFLUENZA A VIRUS SUBTYPE.CO-INFECTION WITH INFLUENZA A AND B IS RARE. IT IS RECOMMENDED THAT DUAL POSITIVE RESULTS BE CONFIRMED BY VIRAL CULTURE OR AN FDA-CLEARED INFLUENZA A AND B MOLECULAR ASSAY. INDIVIDUALS WHO HAVE RECEIVED NASALLY ADMINISTERED INFLUENZA A VACCINE MAY TEST POSITIVE IN COMMERCIALLY AVAILABLE INFLUENZA RAPID DIAGNOSTIC TESTS FOR UP TO THREE DAYS. RESULT CRITICAL? NO [facility] [place] Comment on above: Performed By: #### 2 [id number] #### [address] [address] RAPID STREPon 09-11-2024 S. pyogenes Ag IA Ql (Unsp spec) Rapid Strep NEG:GRP A STREP INTERNAL QC PASS EXTERNAL QC DONE? YES [facility] [place] Comment on above: Performed By: #### 2 [id number] ####[place],[address] [place], [place] [address] ED MED ADMINISTRATION DETAIL on 08-05-2024 ED MED ADMINISTRATION DETAIL [facility] [employer] [facility] Medication Administration [address] [address] [phone] 08/05/2024 Patient: MESSI PASTOR Sex: Male : 2000 Age: 24y MEASUREMENTS: Wt: 79.4 kg, Ht/Mynor: 72.0 in, BMI: 23.73 ALLERGIES: Penicillins Medication Ordered Medication Administration Date/Time Bupivacaine (PF) Completed Intradermal 0.5 % 5 11:53 08/05/2024 Melissa Roth R.N. Order Comments: 11:53 08/05/2024: Say swanson leted per md Jania Roth R.N. 1 of 1 [facility] [place] ED NURSES CLINICAL NOTEon ED NURSES CLINICAL NOTE Nurse Narrative Nurse Clinical [address] [address] [phone] 08/05/2024 [id number] Sex: Male : 2000 Age: 24y Disposition: Discharge Disposition Decision Time: 11:32 08/05/2024 Departure Time: 11:47 08/05/2024 TRIAGE Arrived by private vehicle. Historian: patient. Unaccompanied. Primary physician (Nava). Triage time: 11:16 08/05/2024. Acuity: LEVEL 4. Chief Complaint: LEFT LOWER TOOTHACHE and CHIPPED TOOTH. This started today. SEPSIS SCREEN: NEGATIVE. SIRS criteria negative. No possible sources of infection. -- 11:08/05/24 OKSANA Roth R.N. 11:08/05/24. BP: 147/81 MAP: 103. HR: 106. RR: 18. O2 saturation: 99% Temperature: 98.2 F. Pain level now 04/25. -- 11:08/05/24 OKSANA Roth R.N. Measurements: 11:08/05/24 Wt: 79.4 kg, Ht/Mynor: 72.0 in, BMI: 23.73 -- 11:08/05/24 OKSANA Roth R.N. Medications: acetazolamide 250 mg tablet: 1 tablet once a day. -- 11:36 08/05/24 OKSANA Roth R.N. Allergies: 1 of 3 Nurse Narrative Penicillins -- 11:08/05/24 OKSANA Roth R.N. Problems: Hypokalemia -- 11:08/05/24 OKSANA Roth R.N. ADDITIONAL SURGERIES: no known surgical history -- 11:08/05/24 OKSANA Roth R.N. History 11:08/05/24. SOCIAL HX: Never smoker. Occasional alcohol use. Occasional drug use: marijuana. The patient has not traveled outside the [place] Infectious disease exposure: No infectious disease exposure. ABUSE ASSESSMENT: The patient answered yes to the question(s) Do you feel safe in your home? and no to the question(s) Are you afraid to go home?. SELF HARM ASSESSMENT: Self harm assessment was performed. The patient answered no to the question(s) Have you recently felt down, depressed, or hopeless? and Do you have thoughts of harming or killing yourself?. FALL RISK ASSESSMENT: Fall risk assessment completed. No risk factors identified. -- 11:19 08/05/24 OKSANA Roth R.N. Interventions 11:16 08/05/24. Identification band and allergy band on patient. -- 11:19 08/05/24 OKSANA Roth R.N. PHYSICAL ASSESSMENT 11:15 08/05/24. Ambulatory to room. GENERAL / NEURO / PSYCH: Alert. Oriented X 4. Appears in no acute distress. HEENT: Pupils equal, round and reactive to light. Mouth within normal limits upon inspection. Dental tenderness (left lower molar). Dental decay (left lower molar area). Mucous membranes are pink. RESPIRATORY: Respirations not labored. SKIN: Skin is warm and dry. Normal skin turgor. -- 11:54 08/05/24 OKSANA Roth R.N. 2 of 3 Nurse Narrative NURSING PROGRESS NOTES 11:15 08/05/24. Call light placed in reach. Side rails up x 1. Bed placed in lowest position. Brakes of bed on. -- 11:54 08/05/24 OKSANA Roth R.N. DISPOSITION / DISCHARGE Departure time: 11:47 08/05/2024. Condition at departure: unchanged. No learning barriers present. Discharge instructions provided and reviewed with the patient. Reviewed medication(s). Prescription(s) sent electronically to pharmacy. Patient verbalized understanding. Written instructions provided in [place] Leonean. The patient was discharged by the physician. The patient was discharged home. The patient left ambulatory and via private vehicle. -- 11:47 08/05/24 OKSANA Grayson R.N. 11:47 08/05/24. Vital signs deferred due to patient vital signs done recently. -- 11:47 08/05/24 OKSANA Grayson R.N. (Electronically signed by Elizabeth Roth R.N. 08/05/24 11:55:08 EST) Generated by [facility] 3 of 3 [facility] [place] ED ORDER SHEET (CPOE ONLY)on 08-05-2024 ED ORDER SHEET (CPOE ONLY) Order Sheet Order Sheet [facility] [address] [place] [address] [id number] 08/05/2024 Patient: MESSI PASTOR Sex: Male : 2000 Age: 24y MEASUREMENTS: Wt: 79.4 kg, Ht/Mynor: 72.0 in, BMI: 23.73 ALLERGIES: Penicillins MEDICATION/IV/DRIP/FLUID ORDERS Order Description Priority Entered Acknowledged Completed Bupivacaine (PF) Intradermal 11:27 08/05/2024 11:42 11:53 0.5 %5 mL (NOW x1) Giovanni Hathaway, 08/05/2024 08/05/2024 Elizabeth Stevens R.N. R.N. Order Comments: 11:53 08/05/2024: Order completed per md Elizabeth Roth R.N. LAB ORDERS Order Description Priority Entered Acknowledged Collected Completed DIAGNOSTIC STUDY ORDERS Order Description Priority Entered Acknowledged Completed STAFF ORDERS Order Description Priority Entered Acknowledged Collected Completed [Electronically signed by Giovanni Hathaway D.O. (08/05/2024 17:27 EST)] 1 of 1 [facility] [place] ED PHYSICIAN CLINICAL REPORT on 08-05-2024 ED PHYSICIAN CLINICAL REPORT Narrative Physician Clinical Narrative [address] [address] [id number] 08/05/2024 Patient: MESSI PASTOR Sex: Male : 2000 Age: 24y Disposition: Discharge Disposition Decision Time: 11:32 08/05/2024 Departure Time: 11:47 08/05/2024 Measurements Wt: 79.4 kg, Ht/Mynor: 72.0 in, BMI: 23.73 Initial Vital Sign Measured Time BP MAP HR RR O2Sat ETCO2 Temp Pain GCS RTS 11:18 08/05/2024 147/81 103 106 18 99% 98.2 F 10 Time Seen: 11:21 08/05/2024. Arrived- By private vehicle. Historian- patient. HISTORY OF PRESENT ILLNESS Chief Complaint: DENTAL PAIN. This started today patient came in complaining of pain in his left lower molar area. Started hurting today it is a 04/25 he has a dentist appointment on but he could not tolerate it and presents to the emergency department he describes the pain as a sharp throbbing pain has tried putting Listerine on as well as salt water. It is giving him pain. Denies any fevers or chills no nausea or vomiting. REVIEW OF SYSTEMS CONSTITUTIONAL: No fever. RESPIRATORY: No cough. GI: No nausea or vomiting. NEUROLOGICAL: No headache. MUSCULOSKELETAL: No joint pain. SKIN: No skin rash. PAST HISTORY 1 of 4 Narrative Hypokalemia Surgeries: no known surgical history Medications: acetazolamide 250 mg tablet: 1 tablet once a day. Allergies: Penicillins SOCIAL HISTORY Never smoker. Occasional drug use: marijuana. No alcohol use. ADDITIONAL NOTES The nursing notes have been reviewed. PHYSICAL EXAM Appearance: Alert. No acute distress. Head: Normal external inspection. Eyes: Pupils equal, round and reactive to light. Conjunctivae and eyelids normal. ENT: Dental decay and tenderness. Ears normal. Nose normal. Pharynx normal. Lips normal. Uvula midline. No muffled or hoarse voice, drooling or trismus. Neck: Trachea midline. No adenopathy. CVS: Normal heart rate and rhythm. Heart sounds normal. Respiratory: No respiratory distress. Breath sounds normal. Abdomen: Soft. No organomegaly. Skin: Normal skin color. No rash. Normal skin turgor. Extremities: Extremities exhibit normal ROM. Extremities nontender. Neuro: Oriented X 3. No motor deficit. PROGRESS AND PROCEDURES 2 of 4 Narrative MEDICAL DECISION MAKING: (patient came in complaining of pain in his left lower molar area. Started hurting today it is a 10/10 he has a dentist appointment on but he could not tolerate it and presents to the emergency department he describes the pain as a sharp throbbing pain has tried putting Listerine on as well as salt water. It is giving him pain. Denies any fevers or chills no nausea or vomiting. risks and benefits were explained with to an apical block on the 19th tooth which he accepted. An apical block was performed did have bleeding in the area. Did give him relief of his pain. We will write him for a couple of oxycodone for severe pain as well as Motrin also placed him on pen VK. And he is diagnosed with odontalgia possible infection). Disposition: Condition: stable. Discharged in fair condition. Discharge decision based on the following: patient's condition is stable; patient's exam is stable. CLINICAL IMPRESSION Severe dental pain. Dental caries (localized) DISCHARGE INSTRUCTIONS Do not work today. Prescription monitor program consulted by me. Prescription Medications: oxycodone 5 mg tablet: Take 1 tablet by mouth every six to eight hours as needed for pain for 3 days, dispense 12 tablet. Refills 0. Pharmacy: [facility] [phone] [place] [address]. penicillin V potassium 500 mg tablet: Take 1 tablet by mouth four times a day for 10 days, dispense 40 tablet. Refills 0. Pharmacy: [facility] [phone] [place] [address]. Follow-up: Follow up with your doctor in two days. Reason for referral: and also your dentist. 3 of 4 Narrative (Electronically signed by Giovanni Hathaway D.O. 08/05/24 17:27:58 EST) Generated by [facility] 4 of 4 [facility] [place] ED SUPER BILLon 08-05-2024 ED SUPER BILL [address] [address] [id number] 08/05/2024 Patient: MESSI PASTOR Sex: Male : 2000 Age: 24y Item Professional Category Description Facility Code Code Quantity Fee Total Nurse/E/M EMERGENCY 779996 1 $0.00 $0.00 DEPARTMENT VISIT MODERATE SEVERITY (66394) Grand Total $0.00 Providers Giovanni Hathaway D.O. Chief Complaint DENTAL PAIN. Principal Diagnosis Severe dental pain. Dental caries (localized) 1 of 2 [facility] ICD-10 Codes K08.89: Other specified disorders of teeth and supporting structures K02.9: Dental caries, unspecified 2 of 2 [facility] ED VISIT SUMMARYon ED VISIT SUMMARY Visit Overview Visit Overview [address] [address] [id number] 08/05/2024 Patient: MESSI PASTOR Sex: Male : 2000 Age: 24y 08/05/2024 05:28 PM EST ED Arrival:11:13 08/05/2024 EST Status: Recent Travel:no Language:eng Adv Directive: Isolation Status: Ethnicity:N Fall Risk:no risk Infectious Disease Exposure:no Measurements:6' / 182.9 Self-Harm Status:risk Sepsis Screen:negative cm 175.0 lb / 79.4 kg Chief Complaint:CHIPPED TOOTH, LEFT LOWER TOOTHACHE, and (Mata ) ALLERGIES Penicillins HOME MEDICATIONS acetazolamide 250 mg tablet: 1 tablet once a day. PAST MEDICAL HISTORY / PROBLEMS Hypokalemia 1 of 3 Visit Overview PAST SURGICAL HISTORY No Surgeries SOCIAL HISTORY Smoking status: No Alcohol use: Yes Drug use: Yes ED COURSE MEDICATIONS GIVEN IN EMERGENCY DEPARTMENT IV SITE INFORMATION INTAKE OUTPUT REASSESMENT (most recent) 11:15 08/05/24. Ambulatory to room. GENERAL / NEURO / PSYCH: Alert. Oriented X 4. Appears in no acute distress. HEENT: Pupils equal, round and reactive to light. Mouth within normal limits upon inspection. Dental tenderness (left lower molar). Dental decay (left lower molar area). Mucous membranes are pink. RESPIRATORY: Respirations not labored. SKIN: Skin is warm and dry. Normal skin turgor. VITAL SIGNS First Vitals Last Vitals Temp 11:18 08/05/24 98.2 F Temp 11:08/05/24 98.2 F BP 11:08/05/24 147/81 BP 11:08/05/24 147/81 HR 11:18 08/05/24 106 HR 11:18 08/05/24 106 RR 11:18 08/05/24 18 RR 11:08/05/24 18 O2 Sat 11:08/05/24 99% O2 Sat 11:08/05/24 99% Pain 11:18 08/05/24 10 Pain 11:18 08/05/24 10 ETCO2 11:08/05/24 ETCO2 11:08/05/24 GCS 11:18 08/05/24 GCS 11:08/05/24 RTS 11:08/05/24 RTS 11:08/05/24 2 of 3 Visit Overview PROCEDURES NURSING INTERVENTIONS LABS / STUDIES CLINICAL IMPRESSION DENTAL CARIES (LOCALIZED) SEVERE DENTAL PAIN 3 of 3 [facility] [place] ED VITALS FLOW SHEETon 08-05 ED VITALS FLOW SHEET Vitals Vital Sign Flow Sheet [facility] [address] [place] [address] [phone] 08/05/2024 Patient: MESSI PASTOR Sex: Male : 2000 Age: 24y Measurements Wt: 79.4 kg, Ht/Mynor: 72.0 in, BMI: 23.73 Measured Time BP MAP HR RR O2Sat ETCO2 Temp Pain GCS RTS 11:47 08/05/2024 Vital signs deferred due to patient vital signs done recently. 11:18 08/05/2024 147/81 103 106 18 99% 98.2 F 10 1 of 1 [facility] [place] Ankle 2 Viewson 01-12-2023 Ankle 2 Views [facility] Imaging Services [address] [place] [address] Ankle 2 Views MR#: [id number] Acct: [id number] Name: MESSI PASTOR Rep #: [id number] : 2000 M 22 From: Chad Tate MD PCP: Dr. Chad Mata MD Status: [facility] Study: Ankle 2 Views Date of Exam: 01/12/23 Exam# [id number] Ordering Dr: Nathan Hightower DO INDICATION: FX EXAMINATION/TECHNIQUE: X-RAY - LEFT XR Ankle 2 Views 5 VIEWS COMPARISON: 01/08/2023 RAD/Ankle 2 Views IMPRESSION: 4 intraoperative fluoroscopic images of trimalleolar fracture ORIF. Electronically Signed: Chad Tate MD at 18:42 EDT , CC: Dr. Nathan Hightower DO; Dr. Chad Mata MD Supervisor Electronic Testing: Signed Normal [facility] Discharge Instructionon 12-16 Discharge Instruction [facility] Medical Records Department [address] [place] [address] Instructions for Home/Discharge Instructions 01/12/23 1545 MR#: [id number] Acct: [id number] Name: MESSI PASTOR Rep #: [id number] : 2000 22 From: Nathan Hightower DO PCP: Dr. Chad Mata MD Status:[facility] Discharge Instructions Follow Up Care Test Results: Test results from this visit will be discussed in further detail at your follow-up appointment, if applicable. Discharge Plan Admission Primary Reason for Your Visit: Left ankle surgery Attending Provider: Nathan Hightower Primary Care Provider: Chad Mata Additional Instructions / Restrictions: Follow preprinted instructions from your surgeons office. Discharge Orders/Prescriptions Prescriptions: No Action magnesium 200 MG tablet 200 mg PO DAILY potassium gluconate 500 MG tablet 595 mg PO DAILY acetazolamide 250 mg tablet Patient Comments: take 1 tablet by mouth twice a day paroxetine HCl 20 mg tablet PO Patient Comments: take 1 tablet by mouth once daily Referrals / Follow Up: Nathan Hightower DO [Med Staff - Active Staff] - Chad Mata MD [Primary Care Provider] - Disposition Disposition (needs filled in before D/C Order can be placed): Home, Self Care 01/12/23 1545 Nathan Hightower DO CC: Dr. Chad Mata MD Signed [facility] Operative Reporton Operative Report [facility] Medical Records Department [address] [facility] [place] [address] Operative Report 01/12/23 1702 MR#: [id number] Acct: [id number] Name: MESSI PASTOR Rep #: [id number] : 2000 22 From: Nathan Hightower DO PCP: Dr. Chad Mata MD Status:[facility] Location: [facility] Report of Operation Date of Procedure: 01/12/23 Description of Surgical Findings:: Preoperative diagnosis: Left ankle trimalleolar fracture Postoperative diagnosis: Left ankle trimalleolar fracture Procedure: Open reduction internal fixation left ankle trimalleolar fracture Surgeon: Nathan Hightower DO Truck Mechanic Apprentice: Whitley Sims PA-C Anesthesia: General endotracheal Wound Specialist: Saqib Vega CRNA Complications: None apparent Drains: None Estimated blood loss: 50 cc Urinary output: None recorded IV fluids: 1 L crystalloid Specimens: None Surgical implants: Arthrex 2.4 mm 6-hole straight plate x2, one third tubular titanium 10 hole plate, 4.0 mm partially-threaded cancellous screw, 3.0 mm partially-threaded cancellous screw Surgical indications: This is a 22-year-old male who sustained a twisting injury to his left ankle approximately 5 days ago. He was seen in the [facility] emergency department where x-rays revealed a trimalleolar fracture with minimal subluxation. A well molded splint was applied by emergency room physician. CT scan was obtained at that time. CT scan demonstrated a hyper plantarflexion variant trimalleolar fracture involving the posterior malleolus with separate posterior lateral and posterior medial fragments with a displaced articular fragment. Patient followed up in our office earlier this week. I saw the patient in the office and recommended surgical invention form of open reduction internal fixation of the left ankle. I reviewed the risks, benefits, terms of procedure. The risks include but are not limited to bleeding, infection, loss of life or limb, risk of anesthesia, risk of nerve block, persistent pain, nonunion, malunion, posttraumatic arthritis, instability, need for additional surgery, failure of orthopedic hardware, persistent limp or need for assistive device. Patient expressed understanding of these risks and wished to proceed. Description of procedure: Patient was seen in preoperative holding area. They were identified by name, medical record number, date of . The operative extremity was marked with a surgical marker. We confirmed informed consent with the patient and all questions were answered to her satisfaction. At time of the procedure, patient was brought to the operative suite and positioned supine on a standard operating table. All bony prominences were well-padded. General anesthesia was administered. After adequate anesthesia, a well-padded pneumatic tourniquet was applied to the left upper thigh. A large bump was placed in the patient's left hip. The left lower extremity was elevated on bath blankets for fluoroscopic imaging and access to the limb during surgery. We secured this with tape as well as the nonoperative extremity. We then performed a timeout with all parties in attendance and agree with the side, site, operation to be performed. No concerns were voiced and elected to proceed. 2 g Ancef Ancef was administered prior to incision by the anesthesia staff. We then prepped and draped the operative extremity using a ChloraPrep. While stabilizing the ankle, the operative extremity was exsanguinated with an Esmarch bandage. Tourniquet was inflated to 250 mmHg, which remained up for 2 hours. Given the fracture pattern of the posterior malleolus I performed a posterior medial approach to the distal tibia. Limb was placed in a [id number] position. Skin incision was made sharply between the posterior border of the medial malleolus and the Achilles tendon extending along the distal tibia and curving towards the foot. Full-thickness skin flaps were developed down the level of the fascia. Crossing vessels were cauterized. Fascia was opened over the flexor houses longus tendon. I developed the plane between the posterior tibialis tendon and the flexor hallucis longus. I then opened the periosteum overlying the posterior medial fragment. Fracture was encountered. I used a dental pick to open the fracture site. A small osteochondral fragment was removed. The articular fragment of concern was visualized and repositioned to an anatomic location. I then reduced the posterior medial fragment to stabilize the intercalary fragment. This was held in place with a K wire after a large pointed reduction clamp was applied. I then visualized the posterior lateral fragment which was well reduced with a dorsiflexion maneuver and direct pressure over the fragment this was also held in place with a K wire. I then selected 2 separate 2.4 mm 6-hole straight plate (more content not included)... Normal [facility] Ankle min 3 Viewson 01-09-20 Ankle min [address] [facility] Imaging Services [address] [place] [address] Ankle min 3 Views MR#: [id number] Acct: [id number] Name: MESSI PASTOR Rep #: [id number] : 2000 M 22 From: Wilma harrison MD PCP: Dr. Chad Mata MD Status: REG ER Study: Ankle min 3 Views Date of Exam: 01/08/23 Exam# [id number] Ordering Dr: Nevin Krause HISTORY: pain. TECHNIQUE: XR Ankle Min 3 Views. COMPARISON: None. FINDINGS: BONES : Fracture of the medial malleolus with lateral displacement. Oblique or spiral fracture of the distal fibula with mild posterior displacement. Nondisplaced fracture of the posterior malleolus. JOINTS: Widening of the ankle mortise medially. Joint effusion. SOFT TISSUES: Severe soft tissue swelling. RAD/Ankle min 3 Views IMPRESSION: Trimalleolar fracture-subluxation of the left ankle. Electronically Signed: Wilma Renteria MD at 15:06 EDT Reading Location ID and State: [facility] / [place] Tel , Service support , CC: BE Krause; Dr. Chad Mata MD Supervisor Electronic Testing: Signed Normal [facility] Emergency Department Summary on 01-08-2023 Emergency Department Summary [facility] Medical Records Department [address] [place] [address] Emergency Department Summary 01/08/23 MR#: [id number] Acct: [id number] Name: MESSI PASTOR Rep #: [id number] : 2000 22 From: Nevin LR PCP: Dr. Chad Mata MD Status:DEP ER Location: ED HPI History of Present Illness Chief Complaint: Lower Extremity Injury Narrative Narrative: 22-year-old male tripped on the stairs yesterday and rolled his left ankle. He is having a lot of pain and swelling and is hobbling around. No weakness numbness or tingling. [facility] Medical History (Updated 01/08/23 @ 16:08 by BE Chavez) Anxiety Depression Home Medications magnesium 200 mg tablet 200 mg PO DAILY 09/30/17 [History Last Taken Unknown] potassium gluconate 500 mg (83 mg) tablet 595 mg PO DAILY 09/30/17 [History Last Taken Unknown] Allergy/AdvReac Type Severity Reaction Status Date / Time amoxicillin Allergy Rash Verified 01/08/23 14:01 Social History (System 04/20/21 @ 14:56 by Leo Martinez) Smoking Status: Never smoker ROS ROS ED ROS Narrative Constitutional: Negative for fever, chills, malaise. Neuro: Negative for motor/sensory dysfunction. Skin: Positive for abrasions. Musc: Positive for left ankle pain, swelling, trauma. EXAM Physical Exam Narrative Exam Narrative: CONST: Patient sitting in no acute distress. EYES: Normal inspection. NECK: Normal inspection. RESP: No respiratory distress, CTAB. CVS: Regular rate and rhythm, no murmur, no gallop. SKIN: 2 small abrasions left medial ankle. EXTREMITIES: Significant left ankle soft tissue swelling with mild deformity, tenderness over the medial and lateral malleolus. No foot tenderness. Achilles intact, normal sensation, 2+ DP pulse. NEURO: Oriented x4. PSYCH: Normal affect. Const Vital Signs: 01/08/23 13:59 01/08/23 16:15 01/08/23 16:17 Temperature 97.4 F L Temperature Source Temporal Pulse Rate 104 H 93 Pulse Rate [1 (Initial Baseline)] 97 Pulse Rate [2] 82 Pulse Rate [3] 80 Pulse Rate [4] 84 Pulse Rate [5] 80 Pulse Rate [6] 82 Pulse Rate [7] 90 Pulse Rate [8] 86 Respiratory Rate 18 21 H Respiratory Rate [1 (Initial Baseline)] 13 Respiratory Rate [2] 16 Respiratory Rate [3] 18 Respiratory Rate [4] 16 Respiratory Rate [5] 16 Respiratory Rate [6] 16 Respiratory Rate [7] 16 Respiratory Rate [8] 16 Blood Pressure 132/65 H 138/79 H Blood Pressure [1 (Initial Baseline)] 128/69 H Blood Pressure [2] 130/73 H Blood Pressure [3] 109/61 Blood Pressure [6] 120/65 Blood Pressure [7] 109/51 L Blood Pressure [8] 119/68 Blood Pressure Mean 87 Pulse Ox 98 100 Oxygen Delivery Method Room Air Nasal Cannula Oxygen Delivery Method [1 (Initial Baseline)] Nasal Cannula Oxygen Delivery Method [2] Nasal Cannula Oxygen Delivery Method [3] Nasal Cannula Oxygen Delivery Method [4] Nasal Cannula Oxygen Delivery Method [5] Nasal Cannula Oxygen Delivery Method [6] Nasal Cannula Oxygen Delivery Method [7] Nasal Cannula Oxygen Delivery Method [8] Room Air Oxygen Flow Rate (L/min) 2 Oxygen Flow Rate (L/min) [1 (Initial Baseline)] 6 Oxygen Flow Rate (L/min) [2] 6 Oxygen Flow Rate (L/min) [3] 6 Oxygen Flow Rate (L/min) [4] 6 Oxygen Flow Rate (L/min) [5] 6 Oxygen Flow Rate (L/min) [6] 6 Oxygen Flow Rate (L/min) [7] 2 01/08/23 16:53 01/08/23 16:57 01/08/23 17:02 Temperature Temperature Source Pulse Rate Pulse Rate [1 (Initial Baseline)] Pulse Rate [2] Pulse Rate [3] Pulse Rate [4] Pulse Rate [5] Pulse Rate [6] Pulse Rate [7] Pulse Rate [8] Respiratory Rate Respiratory Rate [1 (Initial Baseline)] Respiratory Rate [2] Respiratory Rate [3] Respiratory Rate [4] Respiratory Rate [5] Respiratory Rate [6] Respiratory Rate [7] Respiratory Rate [8] Blood Pressure Blood Pressure [1 (Initial Baseline)] Blood Pressure [2] Blood Pressure [3] Blood Pressure [6] Blood Pressure [7] Blood Pressure [8] Blood Pressure Mean Pulse Ox Oxygen Delivery Method Room Air Room Air Room Air Oxygen Delivery Method [1 (Initial Baseline)] Oxygen Delivery Method [2] Oxygen Delivery Method [3] Oxygen Delivery Method [4] Oxygen Delivery Method [5] Oxygen Delivery Method [6] Oxygen Delivery Method [7] Oxygen Delivery Method [8] Oxygen Flow Rate (L/min) Oxygen Flow Rate (L/min) [1 (Initial Baseline)] Oxygen Flow Rate (L/min) [2] Oxygen Flow Rate (L/min) [3] Oxygen Flow Rate (L/min) [4] Oxygen Flow Rate (L/min) [5] Oxygen Flow Rate (L/min) [6] Oxygen Flow Rate (L/min) [7] 01/08/23 17:30 Temperature Temperature Source Pulse Rate (more content not included)... Normal [facility] Extremity Lower without Cont raon 01-08-2023 Extremity Lower without Contra [facility] Imaging Services [address] [place] [address] Extremity Lower without Contra MR#: [id number] Acct: [id number] Name: MESSI PASTOR Rep #: [id number] : 2000 M 22 From: Abrahan Flanagan PCP: Dr. Chad Mata MD Status: DEP ER Study: Extremity Lower without Contra Date of Exam: 0 01/08/23 Exam# [id number] Ordering Dr: Nevin Krause EXAM: CT LEFT LOWER EXTREMITY WITHOUT INTRAVENOUS CONTRAST, ANKLE CLINICAL INDICATION: ankle pain TECHNIQUE: Helically acquired images were obtained of the left ankle without intravenous contrast. 2-D reformats were performed by the technologist. This CT exam was performed using one or more of the following dose reduction techniques: automated exposure control, adjustment of the mA and/or kV according to patient size, and/or use of iterative reconstruction technique. RADIATION DOSE: CTDIvol = 15.35 mGy, DLP = 484.25 mGy-cm COMPARISON: No relevant prior studies available. FINDINGS: BONES/JOINTS: There is an enthesophyte involving the posterior superior calcaneus at the site of insertion of the Achilles tendon. There is a calcaneal spur. No acute fracture. No ankle dislocation. SOFT TISSUES: Soft tissue swelling around the ankle. Distal displaced fibular fracture is comminuted. Fracture of the posterior malleolus. Horizontal fracture through the medial malleolus. OTHER FINDINGS: Splint in place. CT/Extremity Lower without Contra IMPRESSION: Soft tissue swelling around the ankle. Distal displaced fibular fracture is comminuted. Fracture of the posterior malleolus. Horizontal fracture through the medial malleolus. Electronically Signed: Abrahan Solares MD at 17:38 EDT Reading Location ID and State: [facility] / [place] , Service support , CC: BE Krause; Dr. Chad Mata MD Supervisor Electronic Testing: Signed [facility] Discharge Summaryon 10-03-19 Lean Facilitator Authentication Interface Message Text Discharge/Transfer SummaryName: Messi Pastor#: [id number] : 2000Room #: 6228/01 Age/Sex: 17 y.o. maleAdmit Date: 10/01/2017 Admitting: CLAUDETTE Jonesischarge Date: 10/02/2017Discharged from: [place] [facility] serviceAttending: Piotr Hernandez MDFinal Diagnosis:Familial hypokalemic periodic paralysisSignificant Findings (Problem List):Active Hospital Problems Diagnosis Familial hypokalemic periodic paralysisResolved Hospital Problems Diagnosis Date ResolvedNo resolved problems to display.Reason for Hospitalization:Low potassium syndromeDischarge Condition:StableHospital Course (Care, treatment and services provided):Brief Narrative Hospital Course:17 yol male with pmhx of anxiety, ADHD admitted for generalized muscle weaknesssecondary to presumed hypokalemic periodic paralysis as he has not beengenetically tested. There is confirmed genetic testing for disorder in mother,maternal uncle and 2 cousins. Lower extremity weakness was greater than upperextremity. K on admission was 2 meq with repeat K of 1.7 meq. Patient was giveninitial 40 meq IV dose with 40 meq K added to maintenance fluid. Perendocrinology there did not appear to be any suspicion for causes ofmineralocorticoid excess causing hypokalemia. Neurology recommended preventativetreatment with 250 mg diamox BID. During hospital course patients weaknessimproved and patient was back to baseline at discharge. Serum potassiumincreased to 5.3 meq.Treatments and procedures with outcomes:NoneImmunizations(a dministered this admission):NoneSignificant Imaging Results:NonePending Test Results and Tests to Obtain as Outpatient:Serum K levelDisposition:He was discharged to home.Discharge Medications:He did have significant changes to his medication regime (see below)Medication ListSTART taking these medications Morning Afternoon Evening Bedtime As NeededacetaZOLAMIDE 250 MG tabletTake 1 Tab (250 mg) by mouth 2 times daily for 30 daysCommonly known as: DIAMOX [ ] [ ] [ ] [ ] [ ]CONTINUE taking these medications which HAVE changed Morning Afternoon Evening Bedtime As NeededPotassium Gluconate 595 MG CapsTake 595 mg by mouth daily Hold potassium supplementation until levelsnormalize.What changed: how much to take additional instructions [ ] [ ] [ ] [ ] [ ]CONTINUE taking these medications which HAVE NOT changed at this visit Morning Afternoon Evening Bedtime As NeededdiphenhydrAMINE 25 MG capsuleTake 1 at bedtimeCommonly known as: BENADRYL [ ] [ ] [ ] [ ] [ ]lisdexamfetamine 40 MG capsuleTake 1 Cap by mouth daily.Commonly known as: VYVANSE [ ] [ ] [ ] [ ] [ ]magnesium oxide 200 MG TabsTake 200 mg by mouth dailyCommonly known as: MAG OX [ ] [ ] [ ] [ ] [ ]melatonin 3 MG tabletTake 1 tablet at 8 pm for sleep [ ] [ ] [ ] [ ] [ ]sertraline 25 MG tabletTake 1 Tab by mouth daily.Commonly known as: ZOLOFT [ ] [ ] [ ] [ ] [ ]Where to Get Your MedicationsThese medications were sent to [facility]/pharmacy #[id number] - [place], [place] - [address] [facility] [address] acetaZOLAMIDE 250 MG tabletInformation about where to get these medications is not yet availableAsk your nurse or doctor about these medications Potassium Gluconate 595 MG CapsDischarge Instructions:Please take 250mg Diamox BID as instructed and follow up with neurology in 4 wks. Obtain blood work in next 2-3 days to check potassium leveland follow up with PCP within one week of discharge. Hold home potassiumsupplementation of 595 mg caps daily at this time until a normal potassium leveloccurs at which time supplementation can continue. Follow up with geneticcounseling. If experience any palpitations, chest pain or difficulty breathingto seek medical attention. As condition could affect diaphragm and causerespiratory failure.Discharge Orders Future Labs/Procedures Expected by Expires Activity as tolerated As directed Call MD For: Not Drinking or No Urination As directed Call MD For: Temperature >100.4 As directed Call MD for: Difficulty Breathing As directed Call MD For: As directed Comments: Weakness or heart palpitations. Call MD: for Headaches or Visual Disturbances As directed Potassium,WB As directed 12/01/2017 Regular diet for age As directedSigned:Chad Devine MD10/02/201711:55 AMHospitalist AttendingI saw this patient on the day of discharge and agree with the above summary.Please see progress note from this date for additional documentation. Plandiscussed with family and questions answered.Piotr Hernandez [facility] HospitalistPager: [phone] Normal [facility] Potassium,WBon 10-02-2017 Potassium molar conc 5.3 mmol/L High 3.3-5.1 [facility] Comment on above: Performed By: #### M G ####[facility] [phone] Potassium molar conc 4.5 mmol/L Normal 3.3-5.1 [facility] Comment on above: Performed By: #### M G ####[address] [phone] Basic Metabolic Panelon 09-14 Potassium molar conc 6.6 mmol/L Off scale high 3.3-5.1 [facility] Comment on above: Result Comment: Mode rately hemolyzed specimen. Potassium may be falsely elevated. Performed By: #### B MP ####[address] [phone] Calcium 8.8 mg/dL Normal 7.6-11.0 [facility] Comment on above: Performed By: #### B MP ####[address] [phone] Chloride 116 mmol/L High 96-108 [facility] Comment on above: Performed By: #### B MP ####[address] [phone] CO2 18.6 mmol/L Low 22.0-29.0 [facility] Comment on above: Performed By: #### B MP ####[address] [phone] Creatinine 0.50 mg/dL Low 0.70-1.20 [facility] Comment on above: Result Comment: Dlyan ature 0.3-1.0 mg/dL Performed By: #### B MP ####[address] [phone] Glucose mass conc 93 mg/dL Normal 70-99 [facility] Comment on above: Result Comment: Crit lyle for Diagnosis of Diabetes(Effective 12/20/10):Fasting specimen (no caloric intake for at least 8 hours). <100 mg/dl Normal 100-125 mg/dl Increased Risk for Diabetes >125 mg/dl Diagnostic for DiabetesRandom Glucose (any time of day without regard to last meal). >=200 mg/dl plus Classic Symptoms of Diabetes Performed By: #### B MP ####[address] [phone] Sodium 139 mmol/L Normal 133-145 [facility] Comment on above: Performed By: #### B MP ####[address] [phone] Urea nitrogen 7 mg/dL Normal 4-19 [facility] Comment on above: Performed By: #### B MP ####[address] [phone] Potassium molar conc 2.3 mmol/L Off scale low 3.3-5.1 [facility] Comment on above: Performed By: #### B MP ####[address] [phone] Comment, BMP ----- Normal [facility] Comment on above: Result Comment: Repe ated and verified. Performed By: #### B MP ####[address] [phone] Calcium 8.3 mg/dL Normal 7.6-11.0 [facility] Comment on above: Performed By: #### B MP ####[address] [phone] Chloride 117 mmol/L High 96-108 [facility] Comment on above: Performed By: #### B MP ####[address] [phone] CO2 19.7 mmol/L Low 22.0-29.0 [facility] Comment on above: Performed By: #### B MP ####[address] [phone] Creatinine 0.48 mg/dL Low 0.70-1.20 [facility] Comment on above: Result Comment: Dylan ature 0.3-1.0 mg/dL Performed By: #### B MP ####[address] [phone] Glucose mass conc 116 mg/dL High 70-99 [facility] Comment on above: Result Comment: Jasont lyle for Diagnosis of Diabetes(Effective 12/20/10):Fasting specimen (no caloric intake for at least 8 hours). <100 mg/dl Normal 100-125 mg/dl Increased Risk for Diabetes >125 mg/dl Diagnostic for DiabetesRandom Glucose (any time of day without regard to last meal). >=200 mg/dl plus Classic Symptoms of Diabetes Performed By: #### B MP ####[address] [phone] Sodium 140 mmol/L Normal 133-145 [facility] Comment on above: Performed By: #### B MP ####[address] [phone] Urea nitrogen 7 mg/dL Normal 4-19 [facility] Comment on above: Performed By: #### B MP ####[address] [phone] Calcium,Ionized WBon 0318-2 018 Calcium,Ionized WB 5.01 mg/dL Normal 4.60-5.28 [facility] Comment on above: Performed By: #### I CAWB ####[address] [phone] pH of blood 7.349 Low 7.350-7.450 [facility] Comment on above: Performed By: #### I CAWB ####[address] [phone] Gases,Venouson 10-01-2017 Body temperature 37.0 degrees C Normal [facility] Comment on above: Performed By: #### G ASV ####[address] [phone] CO2 39.4 mm Hg Normal 38.0-52.0 [facility] Comment on above: Performed By: #### G ASV ####[address] [phone] CO2 21.4 mmol/L Low 24.0-30.0 [facility] Comment on above: Performed By: #### G ASV ####[address] [phone] HCO3, venous 20.2 mmol/L Low 22.0-28.0 [facility] Comment on above: Performed By: #### G ASV ####[facility] [address] [phone] Hemoglobin mass conc (Bld) 13.1 g/dL Low 13.5-17.5 [facility] Comment on above: Performed By: #### G ASV ####[address] [phone] Hemoglobin mass conc (Bld) 90.3 % T.Hgb Low 94.0-99.0 [facility] Comment on above: Performed By: #### G ASV ####[facility] [address] [phone] O2 saturation 91.7 % Low 95.0-98.0 [facility] Comment on above: Performed By: #### G ASV ####[address] [phone] pH, venous 7.330 Normal 7.280-7.420 [facility] Comment on above: Performed By: #### G ASV ####[facility] [place] [phone] pO2, venous 63.4 mm Hg Normal [facility] Comment on above: Performed By: #### G ASV ####[facility] [place] [phone] Std Base Excess, venous -4.7 mmol/L Normal [facility] Comment on above: Performed By: #### G ASV ####[facility] [place] [phone] H&Romulo 10-01-2017 [employer]ator Authentication Interface Message Text PICU ATTENDING ADMISSION NOTEDATE OF SERVICE: 10/01/2017ATTENDING PROVIDER: Remi Alexandre MD I have examined the patient. 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 First was two years ago in [place]. Today, developedprofound weakness and was unable to walk. Taken to [facility], there initial Kwas 2.0. Given 40 meq KCl IV - recheck K 1.7. Given additional 40 meq KCl po anddiamox x 1. On [facility] transport team's arrival, he remained significantly weakened,iStat 7.35, CO2 33, K <2. Placed on NS +40KCl and brought to [facility] PICU.Patient reports that he has frequent episodes of weakness. Takes po potassiumand magnesium at home. Has not had any formal follow-up with specialist for hisdisease. Sees PCP for ADHD med management.Strong family history of hypokalemic periodic paralysis. Mother, maternal uncle,and 2 cousins.Physical ExamGen- NAD, in bedCNS- Awake, alert. PERRL 3mm. Able to squeeze fingers on right hand, strength3/5 right UE. Can shrug left shoulder. Strength LE 1/5.CV- RRR, no murmurs. Pulses 2+, cap refill <2 secsPulm- Clear to auscultation. No rales or wheezes. No increased WOB or tachypnea.Abd- Soft, NT, ND.Ext- Warm and well perfused.33 yo male with hypokalemic periodic paralysis admitted with acute paralyticattack due to severe hypokalemia. He remains at risk for acute life-threateningdecompensati on (cardiac arrhythmia, respiratory muscle weakness/failure) whilehe is so severely hypokalemic.PLAN:Current plans, by system, include the followingCNS- Monitor muscle strengthCV- monitor for arrhythmias as K is correctedOn telemetry (does appear to have ST depression on monitor)EKG now for baselinePulm- protecting airway currently - monitor for respiratorydepression/weakne ss/impending failureOn RAFEN/GI- NPO, MIVF+40 KCl (NO dextrose - patients have an exaggerated insulinresponse to carbohydrate loads)Monitor UOPElectrolytes now20 meq KCl IV now - f/u level afterFollow K closely once starting to rise - can have posttreatment hyperkalemia aspotassium moves back out of the cells as acute attack is resolvingMay benefit from diamox as a long-term preventive therapy (commonly reported rc effective in reducing attacks)Endo consultHeme- No issuesID- No issuesLines- PIVDisposition- to remain in the PICUI spent 60 minutes of critical care time. This time does not include time spentperforming procedures on this patient.Remi Alexandre MD10/01/2017 Normal [facility] [employer] Facilitator Authentication Interface Message Text MEDICAL ADMISSION HISTORY AND PHYSICALDATE OF SERVICE: 10/01/2017ATTENDING PROVIDER: Remi Alexandre MDInformant: mother, transport team documentation, [facility] COMPLAINT: Muscle weaknessREASON FOR HOSPITALIZATION: Acute or unresolved changes in physiologic statusHISTORY OF PRESENT ILLNESS:Messi is a 17 y.o. male with a history of ADHD who is accompanied by hisparents presenting with generalized muscle weakness that started today. [facility] Upon arrival his legs wereflaccid and he C/O chest pain. Initial labs obtained were significant for a K+of 2.0, and he was treated with KCL 40 meq IV x1. Repeat labs were significantfor K+ of 1.7 and he was given KCL 40 meq po and Diamox 125 mcg po x1, andstarted on maint IV fluids with 40 meq of KCL per liter. He was [facility] without untoward event and admitted to the PICU for definitivecare.At baseline he has a history of ADHD and generalized Anxiety, he takes Vyvanse,Zoloft and Melatonin Mother and patient describe that periodically Mario Alberto will have these episdoesof weakness often 1-2 times weekly or as infrequently as 2-3 times per month.When these occur his mother treats him with an extra pill or 2 ofMagnesium/Potassium OTC supplement. Messi has a close family history ( hismother, maternal uncle and 2 cousins) that have been diagnosed with Hypokalemicperiodic paralysis. He has never been seen by any provider other than hisgeneral care provider at [facility] for any diagnosis or preventative treatment forthese episodes. He takes no special diet or has any dietary restriction.PAST MEDICAL HISTORY:No past medical history on file.PAST SURGICAL HISTORY:No past surgical history on file.FAMILY HISTORY:Family HistoryProblem Relation Age of Onset Bipolar Disorder Paternal GrandmotherPSYCH/SOCIAL HISTORY:Social HistorySocial History Marital status: Single Spouse name: N/A Number of children: N/A Years of education: N/AOccupational History Not on file.Social History Main Topics Smoking status: Passive Smoke Exposure - Never Smoker Types: Cigarettes Smokeless tobacco: Not on file Alcohol use Not on file Drug use: Unknown Sexual activity: Not on fileOther Topics Concern Not on fileSocial History Narrative No narrative on fileDRUG/FOOD ALLERGIES:No Known AllergiesNo food allergiesBIRTH HISTORY:NoncontributoryDEVEL OPMENTAL HISTORY:MilestonesAll met as expectedDIET HISTORY:Age appropriate / normal for ageIMMUNIZATIONS:There is no immunization history on file for this patient.Not evaluated at this time, mother states that shots are up to date.PRIOR TO ADMISSION MEDICATIONS:Prescriptions Prior to AdmissionMedication Sig Dispense Refill Last Dose lisdexamfetamine (VYVANSE) 40 MG capsule Take 1 Cap by mouth daily. 30 Cap 0 sertraline (ZOLOFT) 25 MG tablet Take 1 Tab by mouth daily. 30 Tab 2 diphenhydrAMINE (BENADRYL) 25 MG capsule Take 1 at bedtime 30 Cap 0 melatonin 3 MG tablet Take 1 tablet at 8 pm for sleep 30 Tab Taking atUnknown timeVITAL SIGNS:There were no vitals filed for this visit.I/O:No intake or output data in the 24 hours ending 10/01/17 0037REVIEW OF SYSTEMS:Review of SystemsConstitutional: Negative for chills and fever.HENT: Negative for hearing loss.Eyes: Negative.Respiratory: Negative for shortness of breath.Cardiovascular: Positive for chest pain (C/[facility] [place] [facility] Den[facility] at this time ) and palpitations.Musculoskeletal : Positive for back pain, falls, myalgias and neck pain.Neurological: Positive for focal weakness.Psychiatric/Behavio ral: Nervous/anxious: takes Zoloft and Vyvance at baselineInsomnia: takes Melatonin for sleep QHS.All other systems reviewed and are negative.PHYSICAL EXAM:Physical ExamConstitutional: He is oriented to person, place, and time. He appearswell-developed.obeseH ENT:Head: Normocephalic and atraumatic.Eyes: Pupils are equal, round, and reactive to light.Neck:Generalized weakness with fair head controlCardiovascular: Normal rate, regular rhythm and normal heart sounds.Pulmonary/Chest: Breath sounds normal. No respiratory distress.Abdominal: Soft. Bowel sounds are normal. He exhibits no distension.obeseMusculoskele marianne: Right shoulder: He exhibits decreased range of motion.Neurological: He is alert and oriented to person, place, and time.Skin: Skin is warm.Psychiatric: His mood appears anxious. His speech is rapid and/or pressured. 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 male who presents with generalized weakness likely fromprofound Hypokalemia secondary to Hypokalemic periodic paralysis. He requiresadmission to the PICU for correction of his Hypokalemia and potential forhemodynamic instability or collapse secondary to cardiac dysrhythmia. He willrequire close tele monitoring as he undergoes correction of his electrolytedisturbance.Plans in a system approach:Neuro:No acute issues, neuro checks every 4 hours and prnRespiratory:No acute issues, will monitor closely for respiratory depression. No 02 fordesats- nursing instructed to notify provider for hypoxiaCardiac:Tele monitoring, will obtain and eval 12 lead EKG, monitor hemodynaicsFEN/GI:NPO for now until improved potassium ( WB greater than 3). Will give 20 meq KCLriders and follow levels, maint fluids with 40 meq kcl/ L, stat BMPHeme/ID:No acute issuesGeneral Care:Will consult Endocrinology in am for recommendationsI have rounded and discussed my physical exam and plan of care with PICUattending Dr. Reagan Milligan, NETWORKING ENGINEER 2:18 AM 10/01/2017 Normal [facility] Magnesiumon 10-01-2017 Magnesium 1.6 mg/dL Normal 1.5-2.2 [facility] Comment on above: Performed By: #### M G ####[address] [phone] Phosphoruson 10-01-2017 Phosphate 3.0 mg/dL Normal 2.7-4.5 [facility] Comment on above: Performed By: #### P HOS ####[address] [phone] Potassium,WBon 10-01-2017 Potassium molar conc 4.7 mmol/L Normal 3.3-5.1 [facility] Comment on above: Order Comment: Speci men Source?->Venous Performed By: #### M G ####[address] [phone] Potassium molar conc 4.3 mmol/L Normal 3.3-5.1 [facility] Comment on above: Performed By: #### M G ####[address] [phone] Potassium molar conc 4.7 mmol/L Normal 3.3-5.1 [facility] Comment on above: Performed By: #### M G ####[address] [phone] Potassium molar conc 5.5 mmol/L High 3.3-5.1 [facility] Comment on above: Performed By: #### M G ####[address] [phone] Potassium molar conc 5.9 mmol/L High 3.3-5.1 [facility] Comment on above: Performed By: #### K WB ####[address] [phone] Potassium molar conc 5.5 mmol/L High 3.3-5.1 [facility] Comment on above: Performed By: #### K WB ####[address] [phone] eGFRon 10-01-2017 eGFR (non-black) see below Normal [facility] Comment on above: Result Comment: Refe rence range:> 3 months:>75 ml/min/1.73m^2Unable to calculate EGFR; height not available. Performed By: #### E GFR ####[address] [phone] eGFR (non-black) see below Normal [facility] Comment on above: Result Comment: Refe rence range:> 3 months:>75 ml/min/1.73m^2Unable to calculate EGFR; height not available. Performed By: #### E GFR ####[address] [phone] Vital Signs Date Time Vital Sign Value Performing Clinician Jayesh de león 01-12-2023 17:03-0400 Body temperature 98.3 [degF] [facility] 01-12-2023 17:03-0400 Diastolic blood pressure 84 mm[Hg] [facility] 01-12-2023 17:03-0400 Heart rate 117 /min [facility] 01-12-2023 17:03-0400 Respiratory rate 16 /min [facility] 01-12-2023 17:03-0400 SaO2% (BldA) [Mass fraction] 95 % [facility] 01-12-2023 17:03-0400 Systolic blood pressure 147 mm[Hg] [facility] 01-12-2023 11:33-0400 Body height 182.88 cm [facility] 01-12-2023 11:33-0400 Body mass index (BMI) [Ratio] 31.1 kg/m2 [facility] 01-12-2023 11:33-0400 Body weight 104 kg [facility] 01-08-2023 17:30-0400 Respiratory rate 16 /min [facility] 01-08-2023 16:17-0400 Diastolic blood pressure 68 mm[Hg] [facility] 01-08-2023 16:17-0400 Heart rate 86 /min [facility] 01-08-2023 16:17-0400 Inhaled oxygen flow rate 2 L/min [facility] 01-08-2023 16:17-0400 Systolic blood pressure 119 mm[Hg] [facility] 01-08-2023 16:15-0400 SaO2% (BldA) [Mass fraction] 100 % [facility] 01-08-2023 14:21-0400 Body mass index (BMI) [Ratio] 32.6 kg/m2 [facility] 01-08-2023 14:21-0400 Body weight 109.3 kg [facility] 01-08-2023 13:59-0400 Body height 182.88 cm [facility] 01-08-2023 13:59-0400 Body temperature 97.4 [degF] [facility] Encounters Encounter Date Encounter Type Care Provider Facility Start: 09-11-2024 End: 09-11-2024 Emergency department patient visit BLAYNE HERRERA [place] Start: 08-05-2024 End: 08-05-2024 Emergency department patient visit GIOVANNI HATHAWAY [place] Start: 01-12-2023 End: 01-12-2023 ambulatory Chad Mata Facility:[facility] Start: 01-12-2023 End: 01-12-2023 Admission to same day surgery center [facility] Start: 01-12-2023 End: 01-12-2023 ambulatory [facility] Work Phone: Start: 01-08-2023 End: 01-08-2023 Emergency department patient visit Mike Mccarthy Facility:[facility] Start: 01-08-2023 End: 01-08-2023 Emergency department patient visit [facility] Start: 10-01-2017 End: 10-02-2017 Evaluation and management of inpatient RMEI [facility] Start: 09-30-2017 End: 09-30-2017 Ambulatory PAR[facility] FINK [facility] Procedures Date Procedure Procedure Detail Performing Clinician Start: 01-12-2023 Open reduction with internal fixation Start: 01-12-2023 Fluoroscopic guidance Start: 01-08-2023 MRI of lower extremity Start: 01-08-2023 Radiography of ankle Plan of Treatment Date Care Activity Detail Author Start: 01-12-2023 Application of ice collar, cap or bag [facility] Start: 01-12-2023 Catheterization of vein [facility] Start: 01-12-2023 Elevation of affected extremity [facility] Start: 01-12-2023 Following clinical pathway protocol [facility] Start: 01-12-2023 Patient discharge [facility] Start: 01-12-2023 Procedure discontinued [facility] Start: 01-12-2023 Taking patient vital signs [facility] Start: 01-12-2023 Vital signs measurements [facility] Start: 01-12-2023 [facility] Start: 01-12-2023 Radiography of ankle Ankle 2 Views [facility] Start: 01-12-2023 XR Ankle 2 Views [facility] Start: 01-12-2023 Medication education [facility] Start: 01-08-2023 MR Lower extremity WO contrast [facility] Start: 01-08-2023 MRI of lower extremity Extremity Lower without Contra [facility] Patient Education ED Ankle Fracture [facility] Work Phone: [facility] referral [facility] Work Phone: Payers Date Payer Category Payer Self-pay [id number] 2023 Unknown [id number] 2002 Unknown [id number] 2002 Unknown [id number] Unknown [id number] Unknown [id number] [id number] [id number] Unknown [id number] Unknown [id number] Social History Date Type Detail Facility Start: 01-08-2023 End: 01-12-2023 Tobacco smoking status NHIS Unknown if ever smoked [facility] Start: 2000 Sex Assigned At Male [facility] Goals Date Patient Goal Desired Activity /State Mental Status Date Assessment Result Facility 01-12-2023 Cognitive function Voice/Name [facility] Work Phone: 01-08-2023 Cognitive function Awake;Alert;A ppropriate;Fol lows Commands [facility] Work Phone: Clinical Note 09-14-2024 Note Date & Type Note Facility 09-14-2024 Note Discharge Instructio ns Discharge Summary [facility] [address] [place] [address] [id number] 09/11/2024 Patient: MESSI PASTOR Sex: Male : 2000 Age: 24y Thank you for visiting [facility]. You have been evaluated today by Terry Danielson D.O. for the following condition(s): INSTRUCTIONS Understanding of the discharge instructions verbalized by patient. Follow-up with: Dr. Lopez, Phone: [phone], [address] [facility] [place] , [place], [place]. (home, work ok, lozenges, over the counter congestion medication (Vicks 44, etc), your swabs are negative, your x-ray is good; you are welcomed to return anytime, T H OMLEY< ER PHYSICIAN< H B Monica). Patient Signature Facility Mobility Specialist Date/Time General Instructions with ExitWriter [address] [place] [address] [phone] 09/11/2024 1 of 2 Discharge Instructions Patient: MESSI PASTOR Sex: Male : 2000 Age: 24y Thank you for visiting [facility]. You have been evaluated today by Terry Danielson D.O. for the following condition(s): INSTRUCTIONS Understanding of the discharge instructions verbalized by patient. Follow-up with: Dr. Lopez, Phone: [phone], [address] [facility], [place], [place]. (home, work ok, lozenges, over the counter congestion medication (Vicks 44, etc), your swabs are negative, your x-ray is good; you are welcomed to return anytime, T H OMLEY< ER PHYSICIAN< H B Monica). 2 of 2 [place] Clinical Note 08-05-2024 Note Date & Type Note Facility 08-05-2024 Note Discharge Instructio ns Discharge Summary [address] [place] [address] [phone] 08/05/2024 Patient: MESSI PASTOR Sex: Male : 2000 Age: 24y Thank you for visiting [facility]. You have been evaluated today by Giovanni Hathaway D.O. for the following condition(s): Principal Diagnosis Severe dental pain. Dental caries (localized) INSTRUCTIONS Do not work today. Prescription monitor program consulted by me. Prescription Medications: oxycodone 5 mg tablet: Take 1 tablet by mouth every six to eight hours as needed for pain for 3 days, dispense 12 tablet. Refills 0. Pharmacy: [facility] [phone] [place] [address]. penicillin V potassium 500 mg tablet: Take 1 tablet by mouth four times a day for 10 days, dispense 40 tablet. Refills 0. Pharmacy: [facility] [phone] [place] [address]. 1 of 7 Discharge Instructions Follow-up: Follow up with your doctor in two days. Reason for referral: and also your dentist. You have been given the following additional information: Dental Pain Dental Cavity Patient Signature Facility Mobility Specialist Date/Time General Instructions with ExitWriter [facility] [address] [facility] [facility] [place] [place] [address] [phone] 08/05/2024 Patient: MESSI PASTOR Sex: Male : 2000 Age: 24y Thank you for visiting [facility]. You have been evaluated today by Giovanni Hathaway D.O. for the following condition(s): Principal Diagnosis Severe dental pain. Dental caries (localized) INSTRUCTIONS Do not work today. Prescription monitor program consulted by me. 2 of 7 Discharge Instructions Prescription Medications: oxycodone 5 mg tablet: Take 1 tablet by mouth every six to eight hours as needed for pain for 3 days, dispense 12 tablet. Refills 0. Pharmacy: [facility] [id number] [place] [address]. penicillin V potassium 500 mg tablet: Take 1 tablet by mouth four times a day for 10 days, dispense 40 tablet. Refills 0. Pharmacy: [facility] [phone] [place] [address]. Follow-up: Follow up with your doctor in two days. Reason for referral: and also your dentist. ADDITIONAL INFORMATION Dental Pain 3 of 7 Discharge Instructions A crack or cavity in a tooth can cause tooth pain. This is because the crack or cavity exposes the sensitive inner area of the tooth. An infection in the gum or the tooth's root can cause pain and swelling. The pain is often made worse when you have a hot or cold drink. It can also be worse when you bite on hard foods. Pain may spread from the tooth to your ear, or to the part of the jaw on the same side. Home care Follow these tips when caring for yourself at home: Don't have hot and cold foods and drinks. Your tooth may be sensitive to changes in temperature. Use toothpaste made for sensitive teeth. [place] gently up and down instead of sideways. Brushing sideways can wear away root surfaces if they are exposed. If your tooth is chipped or cracked, see a dentist right away. For short-term pain relief, put clove oil right on the tooth. You can buy clove oil at pharmacies. Some pharmacies carry an hrat-gfv-veqtyuv toothache kit. This has a paste you can put on the exposed tooth to make it less sensitive. Use a cold pack. Put a cold pack on your jaw over the sore area to help reduce pain. Ask your healthcare provider about using qbib-kjh-ruteoby medicine for pain. You may use this unless your provider prescribed another medicine. If you have long-term (chronic) liver or kidney disease, talk with your provider before using acetaminophen or ibuprofen. Also talk with your provider if you've had a stomach ulcer or GI (gastrointestinal) bleeding. Be aware of infection. If you have signs of an infection, you will be given an antibiotic. Take it as directed. Follow-up care Follow up with your dentist, or as advised. Your pain may go away with the treatment given today. But only a dentist can fully check and treat the cause of your pain. This will keep the pain from coming back. Call 911 Call 911 if any of these occur: Abnormal drowsiness Headache or stiff neck Weakness or fainting Trouble swallowing or breathing 4 of 7 Discharge Instructions When to get medical advice Call your healthcare provider right away if any of these occur: Your face gets swollen or red Pain gets worse or spreads to your neck Fever of 100.4F (38.0C) or higher, or as directed by your provider Pus drains from the tooth Dental Cavity (more content not included)... [facility] Discharge instructions 01-08-2023 Note Date & Type Note Facility 01-08-2023 Hospital Discharg e instructions Additional Instructions As much as you can elevate your leg and put ice over the splint to decrease the swelling. Keep the splint clean and dry. Follow-up in the orthopedic office this week. [facility] Work Phone: Discharge summary Note Date & Type Note Facility Discharge summary Note Date/Time January 12, 2023 3:45 pm [facility] Medical Records Department [address] [place] [address] Instructions for Home/Discharge Instructions 01/12/23 1545 MR#: [id number] Acct: [id number] Name: MESSI PASTOR Rep #:[id number] : 2000 22 From: Nathan vyas DO PCP: Dr. Chad Mata MD Status:REG S DC Discharge Instructions Follow Up Care Test Results: Test results from this visit will be discussed in further detail at your follow-up appointment, if applicable. Discharge Plan Admission Primary Reason for Your Visit: Left ankle surgery Attending Provider: Nathan Hightower Primary Care Provider: Chad Mata Instructions Additional Instructions / Restrictions: Follow preprinted instructions from your surgeons office. Discharge Orders/Prescriptions Prescriptions: No Action magnesium 200 MG tablet 200 mg PO DAILY potassium gluconate 500 MG tablet 595 mg PO DAILY acetazolamide 250 mg tablet Patient Comments: take 1 tablet by mouth twice a day paroxetine HCl 20 mg tablet PO Patient Comments: take 1 tablet by mouth once daily Referrals / Follow Up: Nathan Hightower DO [Med Staff - Active Staff] - Chad Mata MD [Primary Care Provider] - Disposition Disposition (needs filled in before D/C Order can be placed): Home, Self Care 01/12/23 1545<Electronically signed by Nathan Hightower DO>Nathan Hightower DO CC: Dr. Chad Mata MD ~ Signed [facility] Work Phone: Evaluation note Note Date & Type Note Facility Evaluation note No assessment information availa ble [facility] Work Phone: Hospital Discharge instructions Note Date & Type Note Facility Hospital Discharge instructions Additional Instructions Follow preprinted instructions from your surgeons office. Implant Used?: Yes ARTHREX [facility] Work Phone: Summary Purpose Family History No Family History Records FoundNo Family History Records FoundNo Family History Records Found Advance Directives No Advanced Directives Records Found Advance Directive Response Recorded Date/ Time Living Will No January 08, 2023 2:24pm Power of Sourcing Coordinator No January 08 3 2:24pm Advance Directive Response Recorded Date/ Time Living Will No January 12, 2023 11:29am Power of Sourcing Coordinator No January 12 11:29am Chief Complaint and Reason for Visit Chief Complaint LOWER EXT Chief Complaint LOWER EXT ORIF ANKLE TRIMALLEOLAR FX LEFT Additional Source Comments (unrecognized sect ion and content) No Status Records FoundNo Status Records FoundNo Status Records Found INFORMATION SOURCE (unrecogn ized section and content) DATE CREATED AUTHOR 01/05/2018 [facility] DATE CREATED AUTHOR AUTHOR'S ORGANIZ ATION 08/16/2023 [facility] DATE CREATED AUTHOR AUTHOR'S ORGANIZ ATION 09/15/2024 [facility] Care Teams (unrecognized sec tion and content) Team Status: Active Member Role Status Dates Dr. Chad Mata MD Family Provider Active Dr. Chad Mata MD Primary Care Provider Active Team Status: Inactive Member Role Status Dates Dr. Chad Mata MD Primary Care Provider Active Dr. Mike Mccarthy DO Emergency Provider Active Team Status: Inactive Member Role Status Dates Dr. Chad Mata MD Primary Care Provider Active Dr. Mike Mccarthy DO Attending Provider, Emergency Provider Active Team Status: Inactive Member Role Status Dates Dr. Chad Mata MD Primary Care Provider Active Dr. Nathan Hightower DO Attending Provider, [facility] g Provider Active Goals (unrecognized section and content) Goals may be documented in a n alternate section FOR RECORDS PERTAINING TO PATIENTS WHO ARE OR HAVE BEEN ENROLLED IN A CHEMICAL DEPENDENCY/SUBSTANCEABUSE PROGRAM, SOME INFORMATION MAY BE OMITTED. This clinical summary was aggregated from multiple sources. Caution should be exercised in using it in the provision of clinical care. This summary normalizes information from multiple sources, and as a consequence, information in this document may materially change the coding, format and clinical context of patient data. In addition, data may be omitted in some cases. CLINICAL DECISIONS SHOULD BE BASED ON THE PRIMARY CLINICAL RECORDS. [facility]. provides no warranty or guarantee of the accuracy or completeness of information in this document.
[2025-06-20 15:22] LABS: Anion Gap 10 (5-15); BUN 9 mg/dL (4-19); BUN/Creat Ratio 12.5 RATIO (10-20); Calcium,Total 8.9 mg/dL (7.6-11.0); Carbon Dioxide 25.5 mmol/L (21.0-32.0); Chloride 108 mmol/L (98-108); Cholesterol 160 mg/dL (<=190); Glucose 93 mg/dL (70-99); Low Density Lipoprotein Calc. 108 mg/dL; Potassium 4.5 mmol/L (3.3-5.1); Triglycerides 75 mg/dL; Very Low Density Lipoprotein 15 mg/dL (5-40); cholesterol:hdl ratio screen 4.23
== END | disposition home or self-care (01) ==
LOC: MFPLAB 12:13
PROVIDERS: PCP Family Medicine; Visit Provider Family Medicine
DX: Z00.00 Encounter for general adult medical examination without abnormal findings (principal); G72.3 Periodic paralysis
CPT/HCPCS: 36415; 80048; 80061